=== PATIENT | female | born 1950 | race Caucasian/White ===

== ENCOUNTER 2025-08-20 15:37 | Inpatient (IN) | payer MEDICARE, OTHER ==
[~2025-08-20] VITALS: Ht 172.7 cm; Wt 96.3 kg
[~2025-08-20 15:37] MED LIST: ASCO10004 PO; ATOR10TA87 PO; CHOL200080 PO; CYAN-34 PO; GLIP5TAB23 PO; MAGN400C PO
[2025-08-20 16:04] LABS: MEAN PLATELET VOLUME 7.8 FL (7.4-10.4); RED CELL DISTRIBUTION WIDTH 17.2 % (11.5-14.5)
[2025-08-20] MEDS: normal saline 1000ML IV soln IVB ONE (16:28)
[2025-08-20 16:31] LABS: CREATININE 4.21 MG/DL (0.40-0.90); PRO BRAIN NATRIURETIC PEPTIDE 14925 PG/ML (0-125); TOTAL CARBON DIOXIDE 22.8 MMOL/L (24-32); eCRCL 12 ML/MIN; eGFR 10 ML/MIN
--- NOTE | 2025-08-20 16:31 | RADIOLOGY REPORT ---
CHEST RADIOGRAPH Indication: CP Technique: Single frontal view of the chest was obtained. Comparison: DI CHEST,SINGLE VIEW on DOS: 07/24/25 Findings: Mild pulmonary vascular congestion. No significant pleural effusion. No pneumothorax. Stable cardiomediastinal silhouette. IMPRESSION: Mild pulmonary vascular congestion.
[2025-08-20] MEDS: dexamethasone sod phosphate 10mg/ml inj IV STA (16:41)
[2025-08-20] MEDS: dextrose 50%-water 50ml dispensing syringe IV ONE (16:42)
--- NOTE | 2025-08-20 16:42 | Physician Documentation ---
History of Present Illness ~ General Chief Complaint: Hypotension Stated Complaint: LOW BP Time Seen by MD: 15:50 OK to notify your PCP?: Yes Mode of Arrival: EMS History of Present Illness Initial Comments 74-year-old female patient history of CKD, severe ,past medical history of diabetes mellitus, hypertension, hyperlipidemia, IBS, neuropathy , status post NSTEMI recently discharged from the [facility] was brought the emergency room by EMS from [facility] because of low blood pressure. Patient denies any pain including chest pain and also denies shortness a breath. No nausea vomiting diarrhea. No abdominal pain. Medication Reconciliation Allergies: Coded Allergies: No Known Allergies (Unverified , 07/24/25) Scheduled Acetaminophen (Tylenol), 650 MG PO Q6H PRN PAIN, (Reported) Ascorbic Acid (Vitamin C), 1 TAB PO DAILY, (Reported) Aspirin (Aspirin EC), 1 TAB PO DAILY, (Reported) Atorvastatin Calcium* (Lipitor*), 40 TAB PO HS, (Reported) Balsam Liv/Alta Oil (Venelex Ointment), 1 APPLIC TP DAILY, (Reported) Cholecalciferol (Vitamin D3) (Vitamin D3), 1 CAP PO DAILY, (Reported) Clopidogrel Bisulfate (Clopidogrel), 1 TAB PO DAILY, (Reported) Cyanocobalamin (Vitamin B-12) (Vitamin B-12), 1 CAP PO DAILY, (Reported) Empagliflozin (Jardiance), 1 TAB PO DAILY, (Reported) Glipizide (Glipizide), 1 TAB PO DAILY, (Reported) Insulin Lispro (Insulin Lispro), 1 APPLIC SQ ACHS, (Reported) Magnesium (Magnesium Oxide), 400 MG PO DAILY, (Reported) Magnesium Hydroxide (Milk of Magnesia), 30 ML PO DAILY, (Reported) Magnesium Oxide (Magnesium), 1 CAP PO DAILY, (Reported) Melatonin (Melatonin), 1 TAB PO HS, (Reported) Metoprolol Tartrate (Lopressor tablet), 12.5 MG PO BID, (Reported) Midodrine Hcl* (Proamatine*), 1 TAB PO Q8H, (Reported) Multivitamin (Multi Vitamin Daily), 1 TAB PO DAILY, (Reported) Sacubitril/Valsartan (Entresto 24 mg-26 mg Tablet), 0.5 TAB PO Q12H, (Reported) Scheduled PRN Acetaminophen (Tylenol), 650 MG PO Q6H PRN PAIN PRN for pain, (Reported) Acetaminophen/Guaifenesin (Mucinex Cold-Flu Hbp Liq Gel), 2 CAP PO Q12H PRN for cough & congestion, (Reported) Albuterol Sulfate Nebs* (Proventil Nebs*), 2.5 MG IH Q4H PRN for SOB or wheezing, (Reported) Bisacodyl (Dulcolax), 2 TAB PO DAILY PRN for constipation, (Reported) Bisacodyl (Bisacodyl), 1 SUPP RC DAILY PRN for constipation, (Reported) Hydrocodone Bit/Acetaminophen 5/325 MG ([place] 5/325 MG), 2 TAB PO Q4H PRN for moderate or severe pain, (Reported) Na Phos,M-B/Na Phos,Di-Ba (Fleet Enema Extra), 1 APPLIC RC DAILY PRN for constipation, (Reported) Ondansetron HCl (Ondansetron HCl), 1 TAB PO Q6H PRN PRN for nausea/vomiting, (Reported) Review of Systems ROS As stated above in the HPI, otherwise all systems are reviewed and negative. Physical Exam Physical Exam Vital Signs: Temperature: 99.1, Source: Oral, Heart Rate: 89, Respiratory Rate: 16, BP: 85/49, Pulse Oximetry: 97, Weight: 102.000 Oxygen Flow Rate: 2.0 Physical Exam Vital signs reviewed and blood pressure is low. Const: Patient does look pale but not in distress Head: Atraumatic Eyes: Normal Conjunctiva ENT: Normal External Ears, Nose and Mouth. Dry mucous membrane Neck: Full range of motion. No meningismus Resp: Clear to auscultation bilaterally. Normal work of breathing Cardio: Regular rate and rhythm, no murmurs. Skin well perfused Abd: Soft, non-tender, non-distended. Normal bowel sounds. No rebound or guarding Skin: No petechiae or rashes. Warm and dry Back: No midline or flank tenderness Ext: No cyanosis, or edema Neuro: Awake and alert Psych: Normal Mood and Affect Progress Results/Orders Results/Orders Orders - OHAIDE Kenyon MD Chest,Single View (08/20/25 16:18) Monitor (08/20/25 15:42) Saline Lock (08/20/25 15:42) Oxygen (08/20/25 15:42) Norepinephrine 8mg/ 250ml Ns (Norepineph (08/20/25 17:15) Chest,Single View (08/20/25 17:18) Culture Blood (08/20/25 17:28) Straight Cath For Urine Sample (08/20/25 17:31) Hospitalist Icu Consultation (08/20/25 ) Electrocardiogram (08/21/25 ) Completed Orders - AIDE ACEVEDO MD Chest,Single View (08/20/25 16:18) Cbc/Diff (08/20/25 15:42) BMP (08/20/25 15:42) PBNP (08/20/25 15:42) Hs Troponin I W Calculations (08/20/25 15:42) Normal Saline 1000ml (0.9% Sodium Chlori (08/20/25 15:50) Dexamethasone Inj (Decadron 10mg/Ml Inj) (08/20/25 15:50) Liver Panel (08/20/25 15:51) Dextrose 50%-Water (Dextrose 50%-Water S (08/20/25 16:30) Normal Saline 1000ml (0.9% Sodium Chlori (08/20/25 16:45) Lidocaine 1% W/Epi 1:200,000 (Xylocaine (08/20/25 16:55) Lidocaine 1% W/Epi 1:100,000 (Xylocaine (08/20/25 17:00) Chest,Single View (08/20/25 17:18) Procalcitonin (08/20/25 17:28) Lacticsepsis (08/20/25 17:28) Cefepime 1gm In D5w 50ml (Cefepime 1gm/D (08/20/25 17:35) Acetaminophen (08/20/25 15:51) Lipid Panel (08/20/25 15:51) MG (08/20/25 15:51) PHOS (08/20/25 15:51) TSH (08/20/25 15:51) Electrocardiogram (08/21/25 ) Vital Signs 08/20/25 08/20/25 08/20/25 08/20/25 15:49 15:49 15:49 16:33 Temp 99.1 Pulse 90 89 Resp 18 17 16 B/P (MAP) 78/46 85/49 (61) Pulse Ox 97 99 97 O2 Delivery Nasal Cannula* O2 Flow Rate 2 0 2.0 FiO2 N/A 08/20/25 08/20/25 08/20/25 08/20/25 16:46 16:50 17:05 17:20 Pulse 91 91 92 94 Resp 16 20 18 18 B/P (MAP) 70/47 (55) 84/49 (61) 80/51 (61) 88/51 (63) Pulse Ox 99 98 98 98 O2 Flow Rate 2.0 2.0 2.0 2.0 08/20/25 08/20/25 17:35 17:38 Pulse 98 Resp 18 B/P (MAP) 79/52 (61) 86/57 Pulse Ox 99 O2 Flow Rate 2.0 Laboratory Tests Test 08/20/25 15:51 08/20/25 16:27 08/20/25 16:48 White Blood Count 8.1 Red Blood Count 2.92 L Hemoglobin 9.2 L Hematocrit 26.4 L Mean Corpuscular Volume 90.5 Mean Corpuscular Hemoglobin 31.6 H Mean Corpuscular Hemoglobin Concent 35.0 Red Cell Distribution Width 17.2 H Platelet Count 250 Mean Platelet Volume 7.8 Neutrophils (%) (Auto) 78.3 H Lymphocytes (%) (Auto) 13.0 L Monocytes (%) (Auto) 6.0 Eosinophils (%) (Auto) 2.3 Basophils (%) (Auto) 0.4 Neutrophils # (Auto) 6.3 Lymphocytes # (Auto) 1.0 L Monocytes # (Auto) 0.5 Eosinophils # (Auto) 0.2 Basophils # (Auto) 0.0 CBC Comment Prothrombin Time 14.0 H INR International Normalized Ratio 1.4 Activated Partial Thromboplast Time 26 Coagulation Comments Sodium Level 139 Potassium Level 4.9 Chloride Level 103 Carbon Dioxide Level 22.8 L Anion Gap 13 Blood Urea Nitrogen 70 H Creatinine 4.21 H Estimated GFR/1.73 m2 10 BUN/Creatinine Ratio 16.6 Glucose Level 52 L Calcium Level 7.4 L Phosphorus Level 4.4 Magnesium Level 3.1 H Total Bilirubin 0.8 Direct Bilirubin 0.4 H Aspartate Amino Transf (AST/SGOT) 5118 H Alanine Aminotransferase (ALT/SGPT) > 7000 H Alkaline Phosphatase 153 H Troponin I High Sensitivity 4906 *H Pro-B-Type Natriuretic Peptide 51146 H Total Protein 6.2 L Albumin 2.9 L Globulin 3.3 Albumin/Globulin Ratio 0.9 L Triglycerides Level 72 Cholesterol Level 95 LDL Cholesterol 31 L HDL Cholesterol 50 Cholesterol/HDL Ratio 1.9 Procalcitonin 2.36 H Thyroid Stimulating Hormone (TSH) 1.96 Chemistry Comments Acetaminophen Level < 2.0 L Glucometer 55 L 145 H Medical Decision Making Additional information obtaine: old records, other Findings Patient's came in with hypotension. After 1 L of normal saline her blood pressure is still low. Because of CHF and CKD we do not want to give more of fluid. I started her on Levophed to titrate the mean arterial pressure to 65 and above. Right-sided IJ was inserted ultrasound-guided under strict sterile fashions. Chest x-ray shows satisfactory position of the tip of the central line. No pneumo. The patient needs to be admitted for hypotension. We have done the blood culture and lactic acid. chest X ray was unremarkable and UA is pending. Emperic antibiotics started in ER. I think the patient needs to be in the ICU for now. Have spoken to Dr. James at 17:39 hours, alkylation operator and he will see the patient in ER room one. CRITICAL CARE TIME: [50 ] minutes Treatments/Evaluations: Close monitoring and treatment of unstable vital signs, cardiorespiratory, and neurologic status, while maintaining tight balance of f luid, respiratory, and cardiac interventions. This time includes discussing the case with the patient and the patients family. This time does not include all procedures stated elsewhere in this record. This time also includes reviewing old records, labs and radiological studies. This time includes examining and re- examining the patient. Additionally, this time also includes arranging care with admitting and consulting physicians. Differential Diagnosis septic shock cardiogenic shock CHF Pneumonia Urosepsis Acute myocardial infarction Acute Kidney Injury Departure Disposition: ADMITTED INPATIENT Admission Level of Care: Critcal Care Impression: Primary Impression: Acute hypotension Additional Impressions: Aortic stenosis Acute systolic (congestive) heart failure Elevated troponin NSTEMI (non-ST elevated myocardial infarction) Condition: Guarded Referrals: NO PRIMARY CARE PROVIDER (PCP) Signature Scribe Signature: x Attestation: The note accurately reflects work and decisions made by me.Aide Banda MD 08/24/25 09:05 AIDE ACEVEDO MD Aug 20, 2025 16:42
[2025-08-20] MEDS: normal saline 1000ml 1,000 ML IV ONE (16:43)
[2025-08-20] MEDS ORDERED: LIDOcaine 1% w/epiNEPHrine 1:200,000 30ml vial SQ ONE (16:55)
[2025-08-20] MEDS: LIDOcaine 1% W/epiNEPHrine 1:100,000 20ml vial SQ ONE (17:04)
[2025-08-20] MEDS: NORepinephrine 8mg/ 250ml NS 250 ML IV SCH (17:38)
--- NOTE | 2025-08-20 17:47 | RADIOLOGY REPORT ---
EXAM: DI CHEST,SINGLE VIEW CLINICAL HISTORY: CENTRAL LINE CONFIRMATION TECHNIQUE: Single AP view of the chest WID: COMPARISON: DI CHEST,SINGLE VIEW on DOS: 08/20/25 FINDINGS: Lines and tubes: Right IJ central venous catheter with the tip projecting over the mid SVC. Soft tissue anchors project over the right humeral head. Chest: Cardiomegaly and pulmonary vascular congestion. No pleural effusion, pneumothorax, or consolidation. The osseous structures are grossly intact. IMPRESSION: 1. Cardiomegaly and pulmonary vascular congestion. 2. Right IJ central venous catheter with the tip projecting over the mid SVC. No pneumothorax.
[2025-08-20] MEDS ORDERED: ondansetron/PF 4mg/2ml inj IV PRN (18:20)
[2025-08-20] MEDS ORDERED: heparin 25,000 UNIT/250ml bag 250 ML IV PRN (18:25)
--- NOTE | 2025-08-20 18:34 | HISTORY AND PHYSICAL-Residence ---
History & Physical Providers to CC Resident Creating Document: BISMARK SUTHERLAND RES ~ History of Present Illness Reason for Admit\Complaint: Shock History of Present Illness The 74-year-old female with a past medical history of CAD-s/p proximal LAD stenting on 07/28/2025, mellitus, hypertension, hyperlipidemia was transferred from [facility] for hypotension. Mentioned that she has been feeling dizzy since morning. Did not have any fall. Was nauseous yesterday and threw up food. Mentioned that the shortness of breath is there for few months and is now getting worse. Also complains of orthopnea and PND. On Oxygen supplementation at the rehab but denied using any oxygen at home before cardiac stenting. Unsure how much oxygen she was requiring at the rehab. Denies any chest pain, nausea and vomiting now, abdominal pain, constipation or diarrhea, dysuria, blurry vision. Walks using a cane. Discharged on aspirin, Plavix, beta- marisol, Entresto, Jardiance and midodrine but no Lasix. She received 20 mg IV Lasix during her hospital stay. Allergies: Coded Allergies: No Known Allergies (Unverified , 07/24/25) Home Medications Home Medications Active Reported Vitamin B-12 (Cyanocobalamin (Vitamin B-12)) 1,000 Mcg Capsule 1 Cap PO DAILY 30 Days Vitamin D3 (Cholecalciferol (Vitamin D3)) 50 Mcg (2000 Unit) Capsule 1 Cap PO DAILY 30 Days Vitamin C (Ascorbic Acid) 1,000 Mg Tablet 1 Tab PO DAILY 15 Days DIRECTED Magnesium (Magnesium Oxide) 400 Mg Magnesium Capsule 1 Cap PO DAILY 30 Days Lipitor* (Atorvastatin Calcium) 10 Mg Tablet 1 Tab PO DAILY 30 Days Glipizide 5 Mg Tablet 1 Tab PO DAILY 30 Days Past Medical History Past Medical History Diabetes mellitus type 2, hypertension, hyperlipidemia, IBS, neuropathy Past Surgical History Surgical History Comment s/p amputation of left 1st and 2nd toe and right 1st toe many years back, proximal LAD stenting on 07/28/2025, tonsillectomy Past Social History Social History Comment Quit smoking tobacco about 25 years back and smoked about five cigarettes per day for about 10 years. Occasionally drinks alcohol-one beer per month. Denied abusing any other recreational drugs ROS ROS Constitutional: Dizziness present. No fever, chills, weakness, weight gain or loss Eyes: No pain, erythema, discharge, blurring of vision ENT: No sore throat, epistaxis, tinnitus Cardiovascular: Orthopnea and PND present. No chest pain, chest pressure, chest discomfort, palpitations, syncope Respiratory: Shortness of breaths present. No cough, hemoptysis Gastrointestinal: Normal appetite. No nausea, vomiting, diarrhea, constipation, hematemesis, abdominal pain, bloating, melena or fresh blood Genitourinary: No frequency, urgency, nocturia, hematuria or dysuria Musculoskeletal: No arthralgias or myalgias Integumentary: No change in skin, hair, nails. No swelling, bruising, abrasions Neurologic: No headache, neck pain, numbness or tingling of the extremities, weakness Psychiatric: No delusions, depression, loss of interest in normal activity or change in sleep pattern, hallucinations, suicidal ideations Endocrine: No fatigue, weakness, polydipsia, polyuria, change in appetite, heat or cold intolerance, sweating, dry skin Hematological: No bleeding, petechiae, bruising Allergies: No asthma or urticaria Exam Vitals: Vital Signs Date Time Temp Pulse Resp B/P (MAP) Pulse Ox O2 Delivery O2 Flow Rate FiO2 08/20/25 17:57 123/57 08/20/25 16:50 91 20 98 2.0 08/20/25 15:49 99.1 08/20/25 15:49 Nasal Cannula* N/A General: Drowsy. Oriented x4. HEENT: Normocephalic and atraumatic. Pupils equal round reactive to light and accommodation. Extraocular movements intact. Oral mucosa dry Neck: Trachea is in midline. No masses or JVD Chest: Bilateral mildly decreased breath sounds. Bilateral basal crackles present. No rhonchi or wheezing Cardiovascular: Regular rate and rhythm. S1-S2 normal. Grade 3/6 systolic ejection murmur in the aortic area, grade 3/6 holosystolic murmur in the tricuspid and mitral area Abdomen: Soft, nontender nondistended. Bowel sounds present Extremities: Bilateral 1+ pedal edema present. No cyanosis or clubbing. S/p left 1st 12nd toe amputation and right 1st toe amputation-many years back Central Nervous System: Bilateral upper extremity motor power-4/5. Bilateral lower extremity motor power 3/5. No significant sensory abnormalities. Skin: Warm and dry Diagnostic Data Last Recorded Lab Results: 08/20/25 1551 08/20/25 1551 Advance Care Planning Advanced Care plannin - 30 Minutes Additional Plan Cardiovascular Cardiogenic shock vs septic shock NSTEMI Chest x-ray showed cardiomegaly and pulmonary vascular congestion Significantly elevated troponin 16991, does not like JAMES on CKD stage 4 Troponin later 4906. Repeat troponins ordered EKG showed sinus rhythm, borderline QRS, Q-waves in leads V1, V2 and V3, no significant ST elevation. Has a artifacts. No new changes compared to the EKG on 07/24/25 Started heparin drip taking heparin bolus Repeat EKG ordered Also received 2 L normal saline boluses in the ER and then was started on Levophed drip-0.1 mcg/kg/minute Has been 81 mg p.o. daily and Plavix 75 mg p.o. daily Hold beta marisol for hypotension Procalcitonin elevated-2.36. Recheck procalcitonin tomorrow WBC normal but neutrophilia present ER Physician ordered cefepime 1 g IV once Started vancomycin pharmacy to dose and cefepime 1 g IV daily Blood cultures ordered Urine analysis ordered Consult Cardiology in a.m. On 07/24/2025 showed LVEF 40%, RA moderately dilated, severe aortic stenosis, severe mitral regurgitation, trace tricuspid regurgitation Repeat echocardiogram ordered Pending urine tox Respiratory Chronic respiratory failure Now, requiring 2 L O2 via nasal cannula Has been requiring about 2-3 L O2 during her previous hospital stay Chest x-ray shows cardiomegaly and pulmonary vascular congestion Holding diuresis for now ABG ordered Renal/electrolytes/fluids JAMES on CKD stage 4 Normal anion gap metabolic acidosis Significant decline in kidney function Today, creatinine 4.21 and EGFR 10, BUN 70 On 07/29/2025, creatinine 1.4, EGFR 37, BUN 63 Hold home medication medication Entresto, Jardiance Urine Lytes ordered Renal ultrasound done on 09/25/2024 showed reduced kidney size-right kidney 8.8 cm and left kidney 8.3 cm Strict I&Os Consult nephrology in a.m. Received 2 L normal saline boluses in the ER Pending phos and magnesium level Corrected calcium with albumin level within normal limits GI Shock liver AST 5118, ALT more than 7000, ALP 153. Normal total bilirubin No Baseline liver function tests available but trending up compared to yesterday Acetaminophen level and hepatic panel ordered Coagulation profile ordered Received 2 L normal saline boluses in the ER On Levophed drip Not giving much IV fluids due to underlying acute CHF and almost end-stage renal disease Hold Lipitor for acute liver injury Neurologic No acute neurological deficits No seizures or delirium Endocrine Prediabetes TSH level pending A1c on 07/24 was 5.8 Continue heart healthy diet Hematology HGB 9.2. WBC normal but neutrophilia present Normocytic normochromic anemia Line: Right IJ central line DVT Prophylaxis: Heparin drip Diet: Heart healthy diet Prophylaxis: Protonix 40 mg p.o. daily Bismark Sutherland MD Internal Medicine Resident, PGY 3 Date of Service: Aug 20, 2025 Billing Provider: COSME THOMPSON MD,BISMARK RES Aug 20, 2025 18:33
[2025-08-20] MEDS ORDERED: vancomycin/NS 1 GM ADD-VANTAGE 250 ML X 1 DOSE IV ONE (18:40)
[2025-08-20] MEDS ORDERED: vancomycin/NS 1 GM ADD-VANTAGE 250 ML X 1 DOSE IV PRN (18:55)
[2025-08-20 19:04] LABS: APTT 26 SECONDS (22-32); INR 1.4 INR
[2025-08-20] MEDS: cefepime 1GM in D5W 50mL 50 ML IV ONE (19:17)
[2025-08-20 19:20] LABS: CHOL/HDL RATIO 1.9 (0.00-4.99); LDL CHOLESTEROL 31 MG/DL (50-100); PHOSPHORUS 4.4 MG/DL (2.3-4.5)
[2025-08-20] MEDS: MESSAGE TO NURSING IV ONE ×2 (19:33→22:20)
[2025-08-20] MEDS: heparin 10,000 units/1 ML INJ IV ONE (19:36)
[2025-08-20] MEDS: heparin 25,000 UNIT/250ml bag 250 ML IV PRN (19:37)
[2025-08-20 20:00] VITALS: BP 110/55; PULSE 122; RESP 19; O2SAT 94
[2025-08-20 20:20] LABS: ABG BASE EXCESS -9.8 mmol/L (-2.0-3.0); ABG HCO3 14.2 mmol/L (21.0-28.0); ABG OXYGEN SATURATION 94.2 % (94.0-98.0); ABG PCO2 (T) 24.9 mmHg (32.0-45.0); ABG PH (T) 7.371 (7.350-7.450); ABG PO2 (T) 75.7 mmHg (83.0-108.0); ALLEN'S TEST Modified; FCOHb 0.5 % (0.5-1.5); FHHb 5.8 % (0.0-5.0); FIO2 28.0 mmHg/%; FMetHb 0.3 % (0.0-1.5); FO2Hb 93.4 % (94.0-98.0); MODE NASAL CANNULA; PATIENT TEMPERATURE 36.2; TOTAL HEMOGLOBIN 10.8 G/dl (12.0-16.0)
[2025-08-20] MEDS: VANCOMYCIN/H2O 1.75g/350mL PB 350 ML IV ONE (20:52)
[2025-08-20 20:56] LABS: LEUKOCYTE ESTERASE ,URINE NEGATIVE (Neg); NITRITES, URINE NEGATIVE (Neg); OCCULT BLOOD,URINE MODERATE (Neg)
[2025-08-20 21:00] VITALS: BP 97/61; PULSE 117; RESP 19; O2SAT 98
[2025-08-20 21:04] LABS: CREATININE,URINE RANDOM 124.0 MG/DL; UA UREA RANDOM 543.0 MG/DL; URINE AMPHETAMINE SCREEN NEGATIVE (Neg); URINE BARBITUATE SCREEN NEGATIVE (Neg); URINE BENZODIAZEPINES SCREEN NEGATIVE (Neg); URINE CANNABINOID SCREEN NEGATIVE (Neg); URINE COCAINE SCREEN NEGATIVE (Neg); URINE METHADONE SCREEN NEGATIVE (Neg); URINE OPIATE SCREEN POSITIVE (Neg); URINE PHENCYCLIDINE SCREEN NEGATIVE (Neg)
[2025-08-20 21:06] LABS: OSMOLALITY UA 418 MOSM/K (50-1400)
[2025-08-20 21:19] LABS: UA COLLECTION TYPE NON-SPECIFIED
[2025-08-20 21:21] LABS: SQUAMOUS EPITHELIAL CELL,UR FEW /LPF (FEW)
[2025-08-20 21:22] LABS: AMORPHOUS URATES 2+
[2025-08-20 22:00] VITALS: BP 118/70; PULSE 113; RESP 17; O2SAT 98
[2025-08-20 22:02] LABS: APTT 31 SECONDS (22-32); INR 1.4 INR
[2025-08-20 22:10] LABS: UA EOSINOPHILS NO EOS /HPF
[2025-08-20] MEDS ORDERED: MESSAGE TO NURSING IV ONE (22:15)
[2025-08-20] MEDS: heparin 10,000 units/1 ML INJ IV PRN (22:19)
[2025-08-20 23:00] VITALS: BP 117/70; PULSE 109; RESP 17; O2SAT 99
[2025-08-20 23:44] VITALS: RESP 17; O2SAT 99
[2025-08-21] VITALS (24 sets, daily range): BP systolic 73–118; BP diastolic 40–68; PULSE 89–108; RESP 12–20; O2SAT 94–100
[2025-08-21] MEDS ORDERED: ALB0.5UD IH ×2 (01:52→13:59)
[2025-08-21] MEDS ORDERED: HYDR-3973 PO (02:36)
[2025-08-21] MEDS ORDERED: ACET1CAP12 PO ×2 (02:36→13:59)
[2025-08-21] MEDS ORDERED: ASPI81TA52 PO ×2 (02:36→13:59)
[2025-08-21] MEDS ORDERED: ACET-1008 PO (02:36)
[2025-08-21] MEDS ORDERED: MAGN400O6 PO ×2 (02:36→13:59)
[2025-08-21] MEDS ORDERED: BISA-155 PO ×2 (02:36→13:59)
[2025-08-21] MEDS ORDERED: MULT-381 PO (02:36)
[2025-08-21] MEDS ORDERED: NA P230E RC ×2 (02:36→13:59)
[2025-08-21] MEDS ORDERED: CLOP75TA34 PO ×2 (02:36→13:59)
[2025-08-21] MEDS ORDERED: EMPA10TA PO ×2 (02:36→13:59)
[2025-08-21] MEDS ORDERED: SACU1TAB PO ×2 (02:36→13:59)
[2025-08-21] MEDS ORDERED: ATOR40TA PO (02:36)
[2025-08-21] MEDS ORDERED: ONDA-103 PO ×2 (02:36→13:59)
[2025-08-21] MEDS ORDERED: MIDO2.5T PO ×2 (02:36→13:59)
[2025-08-21] MEDS ORDERED: METO25TA6 PO (02:36)
[2025-08-21] MEDS ORDERED: BISA10SU11 RC ×2 (02:37→13:59)
[2025-08-21] MEDS: VANCOMYCIN LEVEL IV SCH (03:00)
[2025-08-21 04:36] LABS: INR 1.4 INR
[2025-08-21 04:38] LABS: MEAN PLATELET VOLUME 7.3 FL (7.4-10.4); RED CELL DISTRIBUTION WIDTH 16.9 % (11.5-14.5)
[2025-08-21 04:58] LABS: EOSINOPHILS % (MANUAL) 2.0 % (0-6); LYMPHOCYTES % (MANUAL) 10.0 % (21-51); MONOCYTES % (MANUAL) 6.0 % (2-12); NEUTROPHILS % (MANUAL) 82.0 % (42-75); PLATELET ESTIMATE NORMAL
[2025-08-21] MEDS: MESSAGE TO NURSING IV ONE ×3 (05:15→20:52)
[2025-08-21 05:33] LABS: CREATININE 3.34 MG/DL (0.40-0.90); PHOSPHORUS 4.0 MG/DL (2.3-4.5); eCRCL 15 ML/MIN; eGFR 14 ML/MIN
[2025-08-21 05:36] LABS: TOTAL CARBON DIOXIDE 14.3 MMOL/L (24-32)
--- NOTE | 2025-08-21 06:22 | ELECTROCARDIOGRAPH REPORT ---
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 Thomas Ochoa Measurements Intervals [place] Rate: 90 P: 46 [place]: 156 QRS: 3 QRSD: 151 T: 76 QT: 404 QTc: 495 Interpretive Statements Sinus rhythm IVCD, consider atypical LBBB Electronically Signed On 08-21-2025 6:44:[address] Thomas Ochoa Please click the below link to view image of tracing.
--- NOTE | 2025-08-21 07:05 | PROGRESS NOTE ---
Progress Note Dictate Providers to CC ~ Progress Note: Remains on pressors Central Line/PICC still needed: Yes Edwards Indications Met/Not Met: F/C Indications Not Met Antibiotic Ordered?: N/A Subjective Subjective Comfortable Objective Vitals Vital Signs Date Time Temp Pulse Resp B/P (MAP) Pulse Ox O2 Delivery O2 Flow Rate FiO2 08/21/25 05:59 99.0 106 18 118/58 (78) 99 Nasal Cannula 2.0 08/20/25 23:44 N/A Lab Results: 08/21/25 0409 08/21/25 0409 Objective Heart: S1-2 reg Lungs: Decrease BS at bases Abdomen: Soft, non-tender, BS (+) Ext: No edema Neuro: awake Coagulation Studies Laboratory Tests Test 08/20/25 21:25 08/21/25 04:09 Activated Partial Thromboplast Time 31 SECONDS (22-32) Prothrombin Time 14.0 SECONDS (9.0-12.0) H INR International Normalized Ratio 1.4 INR APTT (Heparin Protocol) 37 SECONDS (45-60) L Coagulation Comments Problem\Assessment\Plan Additional Plan 1-NSTEMI -Heparin drip drip per protocol 2-Cardiogenic Shock -Pressors as needed -F/U LFT 3-JAMES -Avoid nephrotoxic drugs -F/U BMP 4- -Consult Cardiology for TAVR? 5-Metabolic acidosis -Add HCO3 drip 6-Aymptomatic Bacteuria -D/C loni James CC time 35min Sepsis Screening Reassessment Date: Aug 21, 2025 COSME JAMES MD Aug 21, 2025 07:05
[2025-08-21] MEDS: sodium bicarbonate 1meq/ml inj 150 ML in dextrose 5%-water 1,000 ML IV SCH (07:14)
[2025-08-21] MEDS: aspirin 81mg, enteric-coated 1 TAB TABLET.DR PO SCH (08:36)
[2025-08-21] MEDS: pantoprazole 40mg Tablet.DR PO SCH (08:36)
[2025-08-21] MEDS: insulin glargine (Lantus) pen - multi-dose SQ SCH (08:44)
--- NOTE | 2025-08-21 10:37 | ELECTROCARDIOGRAPH REPORT ---
[facility] Test Date: 2025-08-21 Test Time: 10:36:37 Pat Name: WESLY CARY Department: [facility] 2S Patient ID: [id number] Room: [facility] 2011 A Gender: F Manager Heart: CALEB : 1950 Requested By: AIDE ACEVEDO Order Number: [id number] Reading MD: Dr. Ramon Hancock Measurements Intervals [place] Rate: 91 P: 35 [place]: 159 QRS: -47 QRSD: 140 T: 88 QT: 386 QTc: 475 Interpretive Statements Sinus rhythm Atrial premature complex Low QRS voltage limb leads Left bundle branch block Electronically Signed On 08-22-2025 14:33:[address] Ramon Hancock Please click the below link to view image of tracing.
[2025-08-21] MEDS: INSULIN LISPRO 100 UNIT/ML INSULN.PEN MULTI-DOSE SQ SCH (13:44)
[2025-08-21] MEDS ORDERED: MAGN200T5 PO (13:59)
[2025-08-21] MEDS ORDERED: BALS60OI TP (13:59)
[2025-08-21] MEDS ORDERED: MELA5TAB50 PO (13:59)
[2025-08-21] MEDS ORDERED: INSU100V49 SQ (13:59)
[2025-08-21] MEDS ORDERED: HYDR-3965 PO (13:59)
[2025-08-21] MEDS ORDERED: MULT-1085 PO (13:59)
[2025-08-21] MEDS ORDERED: LOP12.5T PO (13:59)
[2025-08-21] MEDS: albumin (human) 25% 100 ML IV solution IV ONE (15:40)
--- NOTE | 2025-08-21 18:11 | CARDIOLOGY REPORT ---
APPROVED REPORT EXAM: Limited 2D, Doppler, and color-flow Echocardiogram. Patient Location: ED1 Blood Pressure: 127/67 mmHg Heart Rate: 115 bpm Rhythm: Sinus Tachycardia Indications CHF Diabetes Troponin 4906 Increased Pro BNP 09423 Instructional Technology Coach is Mattie Hamilton MD Previous echo 07/24/25 [facility] 40% EF ; sev w/ isabel of 0.78 ; grad 81/44 ; pk v 4.49 ; m MS w/ grad 12/6 pk v of 1.72 2D Dimensions IVC 25.18 mm Aortic Valve AoV Peak Damaso. 462.5 cm/s AO Peak GR. 85.6 mmHg LEFT VENTRICLE LV appears normal in size with mild concentric hypertrophy. Overall systolic function appears mildly reduced. Pt on 0.8 mcg/kg/min of LEVO. LVEF is 45-50%. RIGHT VENTRICLE RV appears normal in size and contractility. AORTIC VALVE Known Severe Aortic stenosis with a peak velocity of 4.62 m/s. MITRAL VALVE MV is calcified with known mild stenosis. Valve not fully evaluated due to limited focused exams. Moderate to severe mitral regurgitation TRICUSPID VALVE The tricuspid valve is normal in structure. Trace tricuspid regurgitation. GREAT VESSELS IVC is dilated and collapses less than 50% with inspiration. PERICARDIUM Small anterior pericardial effusion with no evidence of hemodynamic compromise. Pleural effusion. Other Information Study Quality: Adequate Conclusion LV appears normal in size with mild concentric hypertrophy. Overall systolic function appears mildly reduced. Pt on 0.8 mcg/kg/min of LEVO. LVEF is 45-50%. RV appears normal in size and contractility. Known Severe Aortic stenosis with a peak velocity of 4.62 m/s. MV is calcified with known mild stenosis. Valve not fully evaluated due to limited focused exams. Moderate to severe mitral regurgitation The tricuspid valve is normal in structure. Trace tricuspid regurgitation. Small anterior pericardial effusion with no evidence of hemodynamic compromise. Pleural effusion.
[2025-08-21] MEDS ORDERED: MESSAGE TO NURSING IV ONE (20:15)
[2025-08-22] VITALS (25 sets, daily range): BP systolic 83–110; BP diastolic 47–64; PULSE 71–98; RESP 9–21; O2SAT 93–100
[2025-08-22] MEDS: MESSAGE TO NURSING IV ONE (01:13)
[2025-08-22] MEDS: morphine 4 MG/ML inj SYRINge IV PRN (01:58)
[2025-08-22 02:27] LABS: MEAN PLATELET VOLUME 7.3 FL (7.4-10.4); RED CELL DISTRIBUTION WIDTH 16.5 % (11.5-14.5)
[2025-08-22 02:38] LABS: INR 1.4 INR
[2025-08-22 02:47] LABS: CREATININE 2.40 MG/DL (0.40-0.90); PHOSPHORUS 2.6 MG/DL (2.3-4.5); TOTAL CARBON DIOXIDE 24.4 MMOL/L (24-32); eCRCL 21 ML/MIN; eGFR 20 ML/MIN
--- NOTE | 2025-08-22 06:25 | PROGRESS NOTE ---
Progress Note Dictate Providers to CC ~ Progress Note: Remains on pressors Central Line/PICC still needed: Yes Edwards Indications Met/Not Met: F/C Indications Not Met Antibiotic Ordered?: No Subjective Subjective Comfortable Objective Vitals Vital Signs Date Time Temp Pulse Resp B/P (MAP) Pulse Ox O2 Delivery O2 Flow Rate FiO2 08/22/25 06:00 98.2 80 10 93/55 (68) 100 Nasal Cannula 2.0 08/20/25 23:44 N/A Lab Results: 08/22/25 0205 08/22/25 0205 Objective Heart: S1-2 reg Lungs: Decrease BS at bases Abdomen: Soft, non-tender, BS (+) Ext: No edema Neuro: awake Coagulation Studies Laboratory Tests Test 08/20/25 21:25 08/21/25 23:33 08/22/25 02:05 Activated Partial Thromboplast Time 31 SECONDS (22-32) APTT (Heparin Protocol) 52 SECONDS (45-60) Prothrombin Time 13.6 SECONDS (9.0-12.0) H INR International Normalized Ratio 1.4 INR Coagulation Comments Problem\Assessment\Plan Additional Plan 1-NSTEMI -D/C Heparin drip 2-Cardiogenic Shock -Pressors as needed. Titrate for MAP>60mmHg 3-JAMES -Avoid nephrotoxic drugs -F/U BMP 4- -Consult Cardiology for TAVR? 5-Metabolic acidosis -Continue HCO3 drip 6-Aymptomatic Bacteuria 7-BC (+) *1 -Most likely contaminant Samson James CC time 35min Sepsis Screening Reassessment Date: Aug 22, 2025 COSME JAMES MD Aug 22, 2025 06:25
[2025-08-22] MEDS: heparin, porcine 5000 units/ml vial SQ SCH (08:04)
[2025-08-22] MEDS ORDERED: cefepime 1GM in D5W 50mL 50 ML IV SCH (17:30)
[2025-08-23] VITALS (24 sets, daily range): BP systolic 79–108; BP diastolic 40–64; PULSE 71–108; RESP 10–25; O2SAT 92–100
[2025-08-23 02:26] LABS: APTT 24 SECONDS (22-32); INR 1.2 INR
[2025-08-23 02:29] LABS: MEAN PLATELET VOLUME 7.5 FL (7.4-10.4); RED CELL DISTRIBUTION WIDTH 17.1 % (11.5-14.5)
[2025-08-23 02:37] LABS: CREATININE 1.65 MG/DL (0.40-0.90); PHOSPHORUS 2.5 MG/DL (2.3-4.5); TOTAL CARBON DIOXIDE 30.9 MMOL/L (24-32); eCRCL 31 ML/MIN; eGFR 30 ML/MIN
[2025-08-23 06:11] LABS: HBSAG SCREEN Negative (Negative); HEP A AB, IGM Negative (Negative); HEP B CORE AB, TOT Negative (Negative); HEP B SURF AB QUANTITATIVE 40.0 mIU/mL (Immunity>10); HEPATITIS C VIRUS ANTIBODY Non Reactive (Non Reactive)
--- NOTE | 2025-08-23 07:04 | PROGRESS NOTE ---
Progress Note Dictate Providers to CC ~ Progress Note: On/Off pressors Central Line/PICC still needed: Yes Edwards Indications Met/Not Met: F/C Indications Not Met Antibiotic Ordered?: No Subjective Subjective Comfortable Objective Vitals Vital Signs Date Time Temp Pulse Resp B/P (MAP) Pulse Ox O2 Delivery O2 Flow Rate FiO2 08/23/25 05:53 91/57 08/23/25 05:52 98.1 77 10 100 Nasal Cannula 2.0 08/20/25 23:44 N/A Lab Results: 08/23/25 0200 08/23/25 0200 Objective Heart: S1-2 reg Lungs: Decrease BS at bases Abdomen: Soft, non-tender, BS (+) Ext: No edema Neuro: awake Coagulation Studies Laboratory Tests Test 08/22/25 06:36 08/23/25 02:00 APTT (Heparin Protocol) 112 SECONDS (45-60) *H Prothrombin Time 12.5 SECONDS (9.0-12.0) H INR International Normalized Ratio 1.2 INR Activated Partial Thromboplast Time 24 SECONDS (22-32) Coagulation Comments Problem\Assessment\Plan Additional Plan 1-NSTEMI 2-Cardiogenic Shock -Pressors as needed. Titrate for MAP>60mmHg 3-JAMES -Avoid nephrotoxic drugs -F/U BMP 4- -Consult Cardiology for TAVR? 5-Metabolic acidosis -Continue HCO3 drip 6-Romptolorelei James CC time 35min COSME JAMES MD Aug 23, 2025 07:03
[2025-08-23] MEDS: magnesium hydroxide 30ml (MOM) UD suspension PO PRN (15:41)
[2025-08-24] VITALS (24 sets, daily range): BP systolic 84–117; BP diastolic 39–77; PULSE 69–102; RESP 9–22; O2SAT 95–100
[2025-08-24 03:19] LABS: MEAN PLATELET VOLUME 7.2 FL (7.4-10.4); RED CELL DISTRIBUTION WIDTH 17.0 % (11.5-14.5)
[2025-08-24 03:41] LABS: CREATININE 1.25 MG/DL (0.40-0.90); PHOSPHORUS 2.5 MG/DL (2.3-4.5); TOTAL CARBON DIOXIDE 35.1 MMOL/L (24-32); eCRCL 40 ML/MIN; eGFR 42 ML/MIN
--- NOTE | 2025-08-24 06:59 | PROGRESS NOTE ---
Progress Note Dictate Providers to CC ~ Progress Note: On/Off pressors Central Line/PICC still needed: Yes Edwards Indications Met/Not Met: F/C Indications Not Met Antibiotic Ordered?: No Subjective Subjective Comfortable Objective Vitals Vital Signs Date Time Temp Pulse Resp B/P (MAP) Pulse Ox O2 Delivery O2 Flow Rate FiO2 08/24/25 06:00 97.9 73 9 99/44 (62) 99 Nasal Cannula 2.0 08/20/25 23:44 N/A Lab Results: 08/24/25 0305 08/24/25 0305 Objective Heart: S1-2 reg Lungs: Decrease BS at bases Abdomen: Soft, non-tender, BS (+) Ext: No edema Neuro: awake Coagulation Studies Laboratory Tests Test 08/22/25 06:36 08/23/25 02:00 APTT (Heparin Protocol) 112 SECONDS (45-60) *H Prothrombin Time 12.5 SECONDS (9.0-12.0) H INR International Normalized Ratio 1.2 INR Activated Partial Thromboplast Time 24 SECONDS (22-32) Coagulation Comments Problem\Assessment\Plan Additional Plan 1-NSTEMI 2-Cardiogenic Shock -Pressors as needed. Titrate for MAP>60mmHg 3-JAMES -Avoid nephrotoxic drugs -F/U BMP 4- -Consult Cardiology for TAVR? Samson James Sepsis Screening Reassessment Date: Aug 24, 2025 COSME JAMES MD Aug 24, 2025 06:58
[2025-08-24] MEDS: hydrocortisone sod succ/PF 100mg/2ml inj. IV SCH (07:26)
[2025-08-24] MEDS: HYDROcodone/acetaminophen 10/325mg tab PO ONE (22:21)
[2025-08-25] VITALS (29 sets, daily range): BP systolic 79–120; BP diastolic 44–75; PULSE 80–166; RESP 11–26; TEMP 97–98.2; O2SAT 93–100
[2025-08-25] MEDS: HYDROcodone/acetaminophen 5mg/325mg tablet PO PRN (01:04)
[2025-08-25 02:21] LABS: MEAN PLATELET VOLUME 7.2 FL (7.4-10.4); RED CELL DISTRIBUTION WIDTH 17.4 % (11.5-14.5)
[2025-08-25 02:42] LABS: APTT 24 SECONDS (22-32); INR 1.2 INR
[2025-08-25 02:46] LABS: CREATININE 1.24 MG/DL (0.40-0.90); PHOSPHORUS 3.2 MG/DL (2.3-4.5); TOTAL CARBON DIOXIDE 32.0 MMOL/L (24-32); eCRCL 41 ML/MIN; eGFR 42 ML/MIN
[2025-08-25 03:15] LABS: EOSINOPHILS % (MANUAL) 1.0 % (0-6); LYMPHOCYTES % (MANUAL) 14.0 % (21-51); METAMYLEOCYTES% (MANUAL) 1.0 % (0-0); MONOCYTES % (MANUAL) 6.0 % (2-12); NEUTROPHILS % (MANUAL) 78.0 % (42-75)
[2025-08-25 03:16] LABS: NUCLEATED RED BLOOD CELLS 1 /100WBC (0-0); PLATELET ESTIMATE NORMAL
[2025-08-25] MEDS: amiodarone 150mg/dext, iso-os 100 ML IV ONE (09:27)
[2025-08-25] MEDS: amiodarone/D5 360MG/200ML BAG 200 ML IV SCH (09:31)
[2025-08-25] MEDS: Ensure Enlive - 237ML PO SCH (13:00)
--- NOTE | 2025-08-25 13:41 | CONSULTATION REPORT ---
History of Present Illness Providers to CC CC: JUAN J HAMILTON MD ~ Reason for Admit\Admit Dx: Cardiology consultation History of Present Illness Patient presented secondary to dizziness, lightheadedness. Found to have hypotension. Initially admitted to the ICU on Levophed drip. Did have episode of atrial fibrillation with rapid ventricular response treated with amiodarone drip. Now back in sinus rhythm. Also had an acute kidney injury with initial creatinine 4.21 now down to. She has been off Levophed drip since last night. Maintaining map around 60. Complains of continued dyspnea on exertion when working with physical therapy back at rehab. She is on supplemental oxygen. Was discharged home with guideline directed medical therapy for heart failure. Now unable to tolerate given hypotension Allergies: Coded Allergies: No Known Allergies (Unverified , 07/24/25) Home Medications Home Medications Active Reported Venelex Ointment (Balsam Liv/[place] Oil) 56.7 Gm Oint...g. 1 Applic TP DAILY RIGHT HEEL Tylenol (Acetaminophen) 325 Mg Tablet 650 Mg PO Q6H PRN PAIN PRN Ondansetron HCl 4 Mg Tablet 1 Tab PO Q6H PRN PRN Multi Vitamin Daily (Multivitamin) 1 Each Tablet 1 Tab PO DAILY 30 Days Mucinex Cold-Flu Hbp Liq Gel (Acetaminophen/Guaifenesin) 325 Mg-200 Mg Capsule 2 Cap PO Q12H PRN Milk of Magnesia (Magnesium Hydroxide) 400 Mg/5 Ml Oral.susp 30 Ml PO DAILY 7 Days Proamatine* (Midodrine) 2.5 Mg Tablet 1 Tab PO Q8H 30 Days Lopressor tablet (Metoprolol Tartrate) 25 Mg Tablet 12.5 Mg PO BID 12.5 MG = 1/2 TABLET Melatonin 5 Mg Tab.chew 1 Tab PO HS 30 Days Magnesium Oxide (Magnesium) 200 Mg Tablet 400 Mg PO DAILY Jardiance (Empagliflozin) 10 Mg Tablet 1 Tab PO DAILY 30 Days Morrison 5/325 MG (Acetaminophen/Hydrocodone Bitart) 5 Mg/325 Mg Tablet 2 Tab PO Q4H PRN Insulin Lispro 100 Unit/Ml Vial 1 Applic SQ ACHS Fleet Enema Extra (Na Phos,M-B/Na Phos,Di-Ba) 19 Gram-7 Gram/197 Ml Enema 1 Applic RC DAILY PRN Entresto 24 mg-26 mg Tablet (Sacubitril/Valsartan) 24 Mg-26 Mg Tablet 0.5 Tab PO Q12H 30 Days Clopidogrel (Clopidogrel Bisulfate) 75 Mg Tablet 1 Tab PO DAILY 30 Days Do not stop medication unless instructed by prescriber. Bisacodyl 10 Mg Supp.rect 1 Supp RC DAILY PRN 4 Days Dulcolax (Bisacodyl) 5 Mg Tablet.dr 2 Tab PO DAILY PRN 1 Days Aspirin EC (Aspirin) 81 Mg Tablet.dr 1 Tab PO DAILY 30 Days Proventil Nebs* (Albuterol) 2.5 Mg/0.5 Ml Vial.neb 2.5 Mg IH Q4H PRN Tylenol (Acetaminophen) 325 Mg Tablet 650 Mg PO Q6H PRN PAIN MDD 3GM 30 Days not to excede 3Gm acetaminophen in 24 Hours from all sources Vitamin B-12 (Cyanocobalamin (Vitamin B-12)) 1,000 Mcg Capsule 1 Cap PO DAILY 30 Days Vitamin D3 (Cholecalciferol (Vitamin D3)) 50 Mcg (2000 Unit) Capsule 1 Cap PO DAILY 30 Days Vitamin C (Ascorbic Acid) 1,000 Mg Tablet 1 Tab PO DAILY 15 Days DIRECTED Magnesium (Magnesium Oxide) 400 Mg Magnesium Capsule 1 Cap PO DAILY 30 Days Lipitor* (Atorvastatin Calcium) 10 Mg Tablet 40 Tab PO HS 30 Days Glipizide 5 Mg Tablet 1 Tab PO DAILY 30 Days Past Medical History Medical History Comment CAD s/p LAD sent Severe DM2 HTN HLD IBS neuropathy Past Surgical History Surgical History Comment s/p amputation of left 1st and 2nd toe and right first toe. tonsils Past Social History Social History Comment hx smoking. rare ETOH. current at rehab. Physical Exam Last Vital Signs Recorded: RN Vital Signs have been reviewed: Yes, Temperature: 99.1, Source: Bladder, Heart Rate: 106, Respiratory Rate: 18, BP: 87/52, Pulse Oximetry: 93, Weight: 96.300 Physical Exam General: Awake, alert, oriented. No apparent distress Neck: Supple. Normal range of motion. No JVD Respiratory: Lungs clear and diminished in the bases. Chest: Normal shape and size. No accessory muscle use. Cardiovascular: Regular rate and rhythm. S1-S2. Systolic ejection murmur. Gastrointestinal: Abdomen is soft. Nontender to palpation. Bowel sounds present. Extremities: No lower extremity edema, cyanosis or clubbing. Neurologic: Alert and oriented x4. Nonfocal Psychiatric: Normal mood and affect. Skin: Normal color. Warm and dry. Review of Systems ROS Review of systems negative except documented in HPI. Results Echocardiogram Echocardiogram Conclusion LV appears normal in size with mild concentric hypertrophy. Overall systolic function appears mildly reduced. Pt on 0.8 mcg/kg/min of LEVO. LVEF is 45-50%. RV appears normal in size and contractility. Known Severe Aortic stenosis with a peak velocity of 4.62 m/s. MV is calcified with known mild stenosis. Valve not fully evaluated due to limited focused exams. Moderate to severe mitral regurgitation The tricuspid valve is normal in structure. Trace tricuspid regurgitation. Small anterior pericardial effusion with no evidence of hemodynamic compromise. Pleural effusion. Dictated by:KIT SOLORZANO MD Dictation date and time:08/21/251810 Electronically Signed by: KIT SOLORZANO MD Date and Time: 08/21/251810 Diagram Lab Result Diagram: 08/25/25 01508/25/25149 Assessment/Plan Additional Plan Patient presented secondary to hypotension. The following is her problem list: Severe aortic stenosis --referral sent to [facility] --we will attempt to obtain TAVR CT while she is here in the hospital. Currently, she is hypotensive in her heart rate is around 100. She will need to be around [address] Evaluate tomorrow Hypotension/cardiogenic shock --she has been off Levophed since last night (08/24/25) Coronary artery disease --status post PCI of the LAD --continue aspirin, Plavix, statin. Goal LDL less than 55 NSTEMI --no current chest pain. Likely demand ischemia secondary to her JAMES, hypotension Paroxysmal atrial fibrillation --had an episode of atrial fibrillation. Currently in sinus rhythm. --we will plan to transition amiodarone to oral amiodarone Heart failure with reduced ejection fraction --EF around 40%. Unable to tolerate guideline directed medical therapy secondary to hypotension. Acute kidney injury Kidney function improving. --avoid nephrotoxic drugs. Case discussed with Dr. Samson Hamilton who is in agreement with this plan. Supervising MD Supervising Physician: CANDIDA White NP Aug 25, 2025 13:41
--- NOTE | 2025-08-25 14:16 | CONSULTATION REPORT - RESIDENT ---
Consult Providers to CC Resident Creating Document: VIPUL WHELANGOLDYRYAN CESAR CC: SRIDEVI KAISER MD History of Present Illness Reason for Admit\\Complaint: Dizziness History of Present Illness Patient is a 74-year-old female with a history of CAD-s/p proximal LAD stenting on 07/28/2025, type 2 diabetes, hypertension, hyperlipidemia, heart failure with reduced ejection fraction who came to the ED on 08/20/2025 with complaints of "passing out". Patient report that she had two episodes of loss of consciousness in the past 3 weeks prior to admission, as well as increasing shortness of breath, orthopnea and PND. On the day of admission, patient was found to be significantly hypotensive in ED, and was started on Levophed and admitted to the ICU. Patient has been in the ICU with diagnosis of cardiogenic shock 2/2 NSTEMI. Patient remained in the ICU until today, where in view of improvement of blood pressure and no need for further vasopressors patient was downgraded to PCU. However, this morning patient also presented with palpitations, EKG showed atrial fibrillation with RVR, reason why patient was started on amiodarone drip and is currently on normal sinus rhythm. Patient does not have history of atrial fibrillation. Cardiology is following. Allergies: Coded Allergies: No Known Allergies (Unverified , 07/24/25) Home Medications Home Medications Active Reported Venelex Ointment (Balsam Liv/[place] Oil) 56.7 Gm Oint...g. 1 Applic TP DAILY RIGHT HEEL Tylenol (Acetaminophen) 325 Mg Tablet 650 Mg PO Q6H PRN PAIN PRN Ondansetron HCl 4 Mg Tablet 1 Tab PO Q6H PRN PRN Multi Vitamin Daily (Multivitamin) 1 Each Tablet 1 Tab PO DAILY 30 Days Mucinex Cold-Flu Hbp Liq Gel (Acetaminophen/Guaifenesin) 325 Mg-200 Mg Capsule 2 Cap PO Q12H PRN Milk of Magnesia (Magnesium Hydroxide) 400 Mg/5 Ml Oral.susp 30 Ml PO DAILY 7 Days Proamatine* (Midodrine) 2.5 Mg Tablet 1 Tab PO Q8H 30 Days Lopressor tablet (Metoprolol Tartrate) 25 Mg Tablet 12.5 Mg PO BID 12.5 MG = 1/2 TABLET Melatonin 5 Mg Tab.chew 1 Tab PO HS 30 Days Magnesium Oxide (Magnesium) 200 Mg Tablet 400 Mg PO DAILY Jardiance (Empagliflozin) 10 Mg Tablet 1 Tab PO DAILY 30 Days Gray 5/325 MG (Acetaminophen/Hydrocodone Bitart) 5 Mg/325 Mg Tablet 2 Tab PO Q4H PRN Insulin Lispro 100 Unit/Ml Vial 1 Applic SQ ACHS Fleet Enema Extra (Na Phos,M-B/Na Phos,Di-Ba) 19 Gram-7 Gram/197 Ml Enema 1 Applic RC DAILY PRN Entresto 24 mg-26 mg Tablet (Sacubitril/Valsartan) 24 Mg-26 Mg Tablet 0.5 Tab PO Q12H 30 Days Clopidogrel (Clopidogrel Bisulfate) 75 Mg Tablet 1 Tab PO DAILY 30 Days Do not stop medication unless instructed by prescriber. Bisacodyl 10 Mg Supp.rect 1 Supp RC DAILY PRN 4 Days Dulcolax (Bisacodyl) 5 Mg Tablet.dr 2 Tab PO DAILY PRN 1 Days Aspirin EC (Aspirin) 81 Mg Tablet.dr 1 Tab PO DAILY 30 Days Proventil Nebs* (Albuterol) 2.5 Mg/0.5 Ml Vial.neb 2.5 Mg IH Q4H PRN Tylenol (Acetaminophen) 325 Mg Tablet 650 Mg PO Q6H PRN PAIN MDD 3GM 30 Days not to excede 3Gm acetaminophen in 24 Hours from all sources Vitamin B-12 (Cyanocobalamin (Vitamin B-12)) 1,000 Mcg Capsule 1 Cap PO DAILY 30 Days Vitamin D3 (Cholecalciferol (Vitamin D3)) 50 Mcg (2000 Unit) Capsule 1 Cap PO DAILY 30 Days Vitamin C (Ascorbic Acid) 1,000 Mg Tablet 1 Tab PO DAILY 15 Days DIRECTED Magnesium (Magnesium Oxide) 400 Mg Magnesium Capsule 1 Cap PO DAILY 30 Days Lipitor* (Atorvastatin Calcium) 10 Mg Tablet 40 Tab PO HS 30 Days Glipizide 5 Mg Tablet 1 Tab PO DAILY 30 Days Past Medical History Past Medical History CAD s/p PCI on 07/28/2025 Heart failure with preserved ejection fraction Diabetes mellitus type 2 Hypertension Hyperlipidemia IBS Neuropathy Past Surgical History Surgical History Comment S/p amputation of left 1st and 2nd toe and right 1st toe many years back, proximal LAD stenting on 07/28/2025, tonsillectomy Past Social History Social History Comment Quit smoking tobacco about 25 years back and smoked about 3-5 cigarettes per day for about 10 years. Occasionally drinks wine. Denied abusing any other recreational drugs Lives alone, independent Uses a FWW PCP: IMELDA Roberts ROS ROS All systems were reviewed except for pertinent positives mentioned in HPI Reports back pain Reports insomnia Reports constipation Exam Vitals: Vital Signs Date Time Temp Pulse Resp B/P (MAP) Pulse Ox O2 Delivery O2 Flow Rate FiO2 08/25/25 13:00 99.0 96 16 93/53 (66) 96 Nasal Cannula 1.5 General: General: awake, alert oriented to place, time, and person HEENT: Central line present in right IJ. Hard of hearing. No pallor present, no icterus, moist mucous membranes Neck: No masses and tenderness Resp: Unlabored. Lungs clear to auscultation bilaterally. Chest: Normal expansion Cardiovascular: Regular Rate and rhythm, normal S1 and S2, systolic ejection murmur, rub or gallop Abdomen: Soft and nontender, no organomegaly, no guarding and rigidity, bowel sounds present Neuro: No focal weakness in the upper and lower limb muscles, power of the muscles 5/5 bilateral upper and lower extremities, normal reflexes bilaterally. Cranial nerves intact Genitourinary: Edwards catheter in place Extremities: No cyanosis,clubbing or edema Skin: Warm and Dry. No lesions Psych: Normal affect and mood, cooperative with the exam Diagnostic Data Last Recorded Lab Results: 08/25/25 01508/25/25149 Diagnostic Data: Laboratory Tests Test 08/22/25 06:36 08/25/25 01:50 APTT (Heparin Protocol) 112 SECONDS (45-60) *H Prothrombin Time 11.7 SECONDS (9.0-12.0) INR International Normalized Ratio 1.2 INR Activated Partial Thromboplast Time 24 SECONDS (22-32) Coagulation Comments Additional Plan AFib RVR, new onset, now NSR NSTEMI, stable Cardiogenic Shock, resolved CAD s/p PCI go LAD on 07/28/2025 Severe aortic stenosis Heart failure with reduced ejection fraction, class III, stage D Patient remained in the ICU for 4 days, now downgraded to PCU Currently mildly hypotensive but hemodynamically stable No longer requiring vasopressors Echocardiogram from 08/20/2025 shows EF of 45-50% with severe aortic stenosis On baby aspirin and Plavix 75 mg daily since 07/28/2025 Continue metoprolol tartrate 25 mg b.i.d. Continue atorvastatin Continue Jardiance Hold Entresto and spironolactone due to hypotension Started on amiodarone drip today by Cardiology Will transition to p.o. amiodarone 200 mg b.i.d. per Cardiology recommendations Per Cardiology, she will be on aspirin and Plavix for 30 days, then will start Eliquis 5 mg b.i.d. and stop aspirin Start Eliquis on 08/28/2025 Will likely need TAVR workup in the near future Type 2 diabetes A1c from June 29.8 According to med rec she is on glipizide and insulin She did have an episode of hypoglycemia on admission, but otherwise has been hyperglycemic Continue Jardiance as above Start insulin lispro 3 units with meals JAMES, likely prerenal secondary to tubular stasis, resolved Creatinine has been stable at 1.2 Continue monitoring CMP Judicious hydration due to CHF Constipation Patient has not had a bowel movement in 7 days She has received milk of Mag and prune juice in ICU Will order a Dulcolax suppository stat Will add Colace scheduled Hypertension Holding antihypertensive as above Hyperlipidemia Continue atorvastatin 40 mg daily Back pain Continue Gray 5 p.r.n., morphine Insomnia Continue melatonin HS Normocytic anemia Hemoglobin has been around 8 Her baseline was 11.7 Will obtain iron studies Continue monitoring CBC Hypocalcemia Hypomagnesemia Corrected calcium is normal Magnesium replacement protocol in place Will continue monitoring Code Status: Full code DVT prophylaxis: Aspirin and Plavix Analgesia/sedation: Gray, morphine Lines/tubes: PIV, central line. Will remove central line in the a.m. if stable Nutrition: Carb controlled/heart healthy diet PT: Ordered Prognosis: Guarded Disposition: Continue care in PCU. Continue medical management Ryan Guzman MD Internal Medicine Resident PGY-2 Date of Service: Aug 25, 2025 Billing Provider: SRIDEVI KAISER MD, LEONARDO LUIS Aug 25, 2025 14:16
[2025-08-25] MEDS ORDERED: glucagon, human recombinant 1mg kit SUBCUT PRN (15:25)
[2025-08-25] MEDS ORDERED: DEXTROSE 15 GM of carb/4 tabs (each vial/BOTTLE has 4 tablets) PO PRN ×2 (15:25)
[2025-08-25] MEDS ORDERED: dextrose 50%-water 50ml dispensing syringe IV PRN ×2 (15:25)
[2025-08-25] MEDS ORDERED: bisacodyl 5mg tablet.DR PO PRN (15:30)
[2025-08-25] MEDS ORDERED: bisacodyl 10mg suppository rectal RC PRN (15:30)
[2025-08-25] MEDS ORDERED: potassium Cl 20 mEq SR tablet PO PRN ×2 (15:40)
[2025-08-25] MEDS ORDERED: magnesium sulf-water 4G/100mL 100 ML IV PRN (15:40)
[2025-08-25] MEDS ORDERED: magnesium Cl slow-release 64mg tablet PO PRN (15:40)
[2025-08-25] MEDS ORDERED: magnesium sulf-water 2g/50mL 50 ML IV PRN (15:40)
[2025-08-25] MEDS ORDERED: potassium Cl 40MEQ/1/2NS 520ml 520 ML IV PRN (15:40)
[2025-08-25] MEDS: bisacodyl 10mg suppository rectal RC STA (17:11)
[2025-08-25] MEDS: INSULIN LISPRO 100 UNIT/ML INSULN.PEN MULTI-DOSE SQ SCH (18:00)
[2025-08-25] MEDS: K and/or MAG REPLACEMENT MC SCH (20:00)
[2025-08-26] VITALS (42 sets, daily range): BP systolic 74–127; BP diastolic 39–87; PULSE 64–110; RESP 9–23; TEMP 97.4–97.5; O2SAT 95–98
[2025-08-26] MEDS ORDERED: NORepinephrine 8mg/ 250ml NS 250 ML IV SCH (01:55)
[2025-08-26] MEDS: albumin (human) 25% 100 ML IV solution IV ONE (02:31)
--- NOTE | 2025-08-26 02:33 | RADIOLOGY REPORT ---
CHEST RADIOGRAPH Indication: sob Technique: Single frontal view of the chest was obtained COMPARISON: DI CHEST,SINGLE VIEW on DOS: 08/20/25, DI CHEST,SINGLE VIEW on DOS: 08/20/25, DI CHEST,SINGLE VIEW on DOS: 07/24/25 FINDINGS: Lines and Tubes: Right internal jugular central venous catheter unchanged. Lungs: Mildly progressive small bilateral pleural effusions and Bibasilar pulmonary airspace disease. Mild diffuse increased prominence of the pulmonary vasculature. No pneumothorax. Cardiomediastinal contours: Cardiomegaly. Bones: Unremarkable IMPRESSION: 1. Mildly progressive small bilateral pleural effusions and bibasilar pulmonary airspace disease. 2. Mild pulmonary vascular congestion. 3. Cardiomegaly. 4. Right internal jugular central venous catheter.
[2025-08-26 02:49] LABS: MEAN PLATELET VOLUME 7.4 FL (7.4-10.4); RED CELL DISTRIBUTION WIDTH 17.5 % (11.5-14.5)
[2025-08-26 02:57] LABS: APTT 25 SECONDS (22-32); INR 1.2 INR
[2025-08-26 03:14] LABS: % IRON SATURATION 8 % (11-46)
[2025-08-26 03:38] LABS: CREATININE 1.55 MG/DL (0.40-0.90); PHOSPHORUS 3.6 MG/DL (2.3-4.5); TOTAL CARBON DIOXIDE 32.0 MMOL/L (24-32); eCRCL 33 ML/MIN; eGFR 33 ML/MIN
[2025-08-26] MEDS: EMPAGLIFLOZIN 10 MG TABLET PO SCH (08:19)
[2025-08-26] MEDS: normal saline 1000ml 1,000 ML IV SCH (09:07)
[2025-08-26] MEDS: normal saline 1000ml 1,000 ML IV ONE (09:08)
[2025-08-26 09:15] LABS: CREATININE,URINE RANDOM 86.0 MG/DL; TOTAL PROTEIN,URINE RANDOM 21.6 MG/DL; UA UREA RANDOM 753.0 MG/DL
--- NOTE | 2025-08-26 11:29 | PROGRESS NOTE ---
Progress Note Cardiology Providers to CC ~ Subjective Subjective Patient has a low blood pressure overnight. She was given IV fluids 1 L bolus as well as 25% albumin bolus. She is sitting up in a chair. Complains of continued shortness for breath. Objective Result Diagram: 08/26/2522308/26/25223 Objective General: Awake, alert, oriented. No apparent distress Neck: Supple. Normal range of motion. No JVD Respiratory: Lungs clear and diminished in the bases. Chest: Normal shape and size. No accessory muscle use. Cardiovascular: Regular rate and rhythm. S1-S2. Systolic ejection murmur. Extremities: mild edema. No cyanosis or clubbing. Neurologic: Alert and oriented x4. Nonfocal Psychiatric: Normal mood and affect. Skin: Normal color. Warm and dry. Coagulation Studies Laboratory Tests Test 08/22/25 06:36 08/26/25 02:24 APTT (Heparin Protocol) 112 SECONDS (45-60) *H Prothrombin Time 12.2 SECONDS (9.0-12.0) H INR International Normalized Ratio 1.2 INR Activated Partial Thromboplast Time 25 SECONDS (22-32) Coagulation Comments Problem\Assessment\Plan Additional Plan Patient presented secondary to hypotension. The following is her problem list: Severe aortic stenosis --referral sent to [facility] --we will attempt to obtain TAVR CT while she is here in the hospital. Currently, she is hypotensive in her heart rate is around 100. She will need to be around [address] Did not receive ordered metop 2/2 low BP. will continue to follow Hypotension/cardiogenic shock --she has been off Levophed since last night (08/24/25) --08/26/25: had hypotension overnight. Recommend stop IV fluids. If needed start midodrine. Coronary artery disease --status post PCI of the LAD --continue aspirin, Plavix, statin. Goal LDL less than 55 NSTEMI --no current chest pain. Likely demand ischemia secondary to her JAMES, hypotension Paroxysmal atrial fibrillation --had an episode of atrial fibrillation. Currently in sinus rhythm. --we will plan to transition amiodarone gtt to oral amiodarone Heart failure with reduced ejection fraction --EF around 40%. Unable to tolerate guideline directed medical therapy secondary to hypotension. Acute kidney injury Kidney function improving. --avoid nephrotoxic drugs. JAMES with CKD --Improved, but worse overnight likely 2/2 hypotension. --Monitoring. Case discussed with Dr. Samson Hamilton who is in agreement with this plan. Supervising Physician: CANDIDA White NP Aug 26, 2025 11:29
--- NOTE | 2025-08-26 13:08 | PROGRESS NOTE- Residence ---
Progress Note - Resident Providers to CC Resident Creating Document: RYAN MASON CC: SRIDEVI KAISER MD ~ Antibiotic Timeout Antibiotic Ordered?: No Subjective Patient was seen and examined today on the bedside, she was sitting comfortably with 2L oxygen nasal cannula. No acute event overnight. Patient reports that her shortness of breath has improved, she denies any palpitations, chest pain or lightheadedness. Patient complains of back pain, for which she is taking [place] p.r.n. Objective Vital Signs Date Time Temp Pulse Resp B/P (MAP) Pulse Ox O2 Delivery O2 Flow Rate FiO2 08/26/25 12:01 96 08/26/25 12:01 126/87 (100) 08/26/25 11:29 16 95 Nasal Cannula 2.0 08/26/25 08:00 N/A 08/26/25 06:00 97.5 Result Diagram: 08/26/25 0224 08/26/25 0224 General: awake, alert oriented to place, time, and person HEENT: Central line present in right IJ. Hard of hearing. No pallor present, no icterus, moist mucous membranes Neck: No masses and tenderness Resp: Unlabored. Lungs clear to auscultation bilaterally. Chest: Normal expansion Cardiovascular: Regular Rate and rhythm, normal S1 and S2, systolic ejection murmur, rub or gallop Abdomen: Soft and nontender, no organomegaly, no guarding and rigidity, bowel sounds present Neuro: No focal weakness in the upper and lower limb muscles, power of the muscles 5/5 bilateral upper and lower extremities, normal reflexes bilaterally. Cranial nerves intact Genitourinary: Edwards catheter in place Extremities: No cyanosis,clubbing or edema Skin: Warm and Dry. No lesions Psych: Normal affect and mood, cooperative with the exam Coagulation Studies Laboratory Tests Test 08/22/25 06:36 08/26/25 02:24 APTT (Heparin Protocol) 112 SECONDS (45-60) *H Prothrombin Time 12.2 SECONDS (9.0-12.0) H INR International Normalized Ratio 1.2 INR Activated Partial Thromboplast Time 25 SECONDS (22-32) Coagulation Comments Assessment Assessment Patient is a 74-year-old female with a history of CAD-s/p proximal LAD stenting on 07/28/2025, type 2 diabetes, hypertension, hyperlipidemia, heart failure with reduced ejection fraction who came to the ED on 08/20/2025 with complaints of "passing out". Patient report that she had two episodes of loss of consciousness in the past 3 weeks prior to admission, as well as increasing shortness of breath, orthopnea and PND. She had a cardiogenic shock 2/2 to NSTEMI and was in the ICU for 4 days. She was downgraded to PCU yesterday. She had a new onset AFib with RVR. Plan Plan AFib RVR, new onset, now NSR NSTEMI, stable Cardiogenic Shock, resolved CAD s/p PCI go LAD on 07/28/2025 Severe aortic stenosis Heart failure with reduced ejection fraction, class III, stage D Patient remained in the ICU for 4 days, now downgraded to PCU Currently mildly hypotensive but hemodynamically stable No longer requiring vasopressors Echocardiogram from 08/20/2025 shows EF of 45-50% with severe aortic stenosis On baby aspirin and Plavix 75 mg daily since 07/28/2025 Continue metoprolol tartrate 25 mg b.i.d. Continue atorvastatin Continue Jardiance Hold Entresto and spironolactone due to hypotension Completed amiodarone drip yesterday per Cardiology Continue p.o. amiodarone 200 mg b.i.d. per Cardiology recommendations Per Cardiology, she will be on aspirin and Plavix for 30 days, then will start Eliquis 5 mg b.i.d. and stop aspirin Start Eliquis on 08/28/2025 Will likely need TAVR workup CTA in the near future, for which her heart rate should be less than 70 as per cardiology recommendations Type 2 diabetes A1c from 01.30 According to med rec she is on glipizide and insulin She did have an episode of hypoglycemia on admission, but otherwise has been hyperglycemic Continue Jardiance as above Continue insulin lispro 3 units with meals, Lantus 15U and supplemental JAMES, likely prerenal secondary to tubular stasis, resolved Creatinine was 1.5 this morning up from 1.2 yesterday Continue monitoring CMP Judicious hydration due to CHF Constipation She passed stool last night, after Dulcolax suppository was placed Continue bowel care Hypertension Holding antihypertensive as above Hyperlipidemia Continue atorvastatin 40 mg daily Back pain Continue [place] 5 p.r.n., morphine Insomnia Continue melatonin HS Anemia of chronic disease, stable Hemoglobin has been around 8 Her baseline was 11.7 Iron studies are back, consistent with anemia of chronic disease Transfuse if hb<7 Hypocalcemia Hypomagnesemia Corrected calcium is normal Magnesium replacement protocol in place Will continue monitoring Code Status: . Code DVT prophylaxis: Aspirin Plavix Analgesia/sedation: [place] Nutrition: Carb controlled/heart healthy PT: Ordered Prognosis: Guarded Disposition: Continue care in PCU. Continue medical management. Continue recommendations per Cardiology. Plan is to DC back to [facility] once stable Ryan Ibarra MD Internal Medicine Resident PGY-2 Date of Service: Aug 26, 2025 Billing Provider: SRIDEVI KAISER MD, LEONARDO LUIS Aug 26, 2025 13:08
[2025-08-26] MEDS: midodrine tablet 2.5 MG TABLET PO SCH (15:24)
[2025-08-27] VITALS (9 sets, daily range): BP systolic 87–123; BP diastolic 52–76; PULSE 57–79; RESP 9–20; TEMP 97.1–97.4; O2SAT 95–97
[2025-08-27] MEDS ORDERED: IODIXANOL 320 MG/ML INFUS..BTL 100ML IV ONE (06:49)
[2025-08-27 07:05] LABS: MEAN PLATELET VOLUME 7.8 FL (7.4-10.4); RED CELL DISTRIBUTION WIDTH 17.7 % (11.5-14.5)
[2025-08-27 07:27] LABS: INR 1.2 INR
[2025-08-27 07:32] LABS: APTT 20 SECONDS (22-32)
[2025-08-27 07:54] LABS: CREATININE 1.66 MG/DL (0.40-0.90); PHOSPHORUS 3.9 MG/DL (2.3-4.5); TOTAL CARBON DIOXIDE 25.5 MMOL/L (24-32); eCRCL 30 ML/MIN; eGFR 30 ML/MIN
[2025-08-27] MEDS: hydrocortisone sod succ/PF 100mg/2ml inj. IV SCH (08:00)
[2025-08-27] MEDS: INSULIN LISPRO 100 UNIT/ML INSULN.PEN MULTI-DOSE SQ SCH (09:00)
--- NOTE | 2025-08-27 13:03 | DISCHARGE SUMMARY-Residence ---
Discharge Summary Providers to CC Resident Creating Document: VIPUL GUZMANCHARLIEMOIZ GUERRERO CC: SRIDEVI KAISER MD ~ Discharge Summary Admission Diagnosis: Possible cardiogenic shock Hospital Course DATE OF ADMISSION: 08/20/2025 DATE OF DISCHARGE: 08/27/2025 Discharge Diagnosis\Comment: Paroxysmal AFib RVR, new onset, now NSR NSTEMI, stable Cardiogenic Shock, resolved CAD s/p PCI go LAD on 07/28/2025 Severe aortic stenosis Acute on chronic heart failure with reduced ejection fraction, class III, stage D Moderate to severe mitral regurgitation Mild bilateral pleural effusions 2/2 CHF Type 2 diabetes JAMES, likely prerenal secondary to tubular stasis, resolved Constipation Hypertension Hyperlipidemia Chronic back pain Insomnia Anemia of chronic disease, stable Hypocalcemia, improved Hypomagnesemia, resolved Operations\Procedures: None Consultants: Dr Samson Hamilton, Cardiology Complications: None Condition on DC: Stable for transfer Discharge Summary: Patient was admitted with the following HPI by Dr. Shashi Ulloa: The 74-year-old female with a past medical history of CAD-s/p proximal LAD stenting on 07/28/2025, mellitus, hypertension, hyperlipidemia was transferred from [facility] rehab for hypotension. Mentioned that she has been feeling dizzy since morning. Did not have any fall. Was nauseous yesterday and threw up food. Mentioned that the shortness of breath is there for few months and is now getting worse. Also complains of orthopnea and PND. On Oxygen supplementation at the rehab but denied using any oxygen at home before cardiac stenting. Unsure how much oxygen she was requiring at the rehab. Denies any chest pain, nausea and vomiting now, abdominal pain, constipation or diarrhea, dysuria, blurry vision. Walks using a cane. Discharged on aspirin, Plavix, beta- marisol, Entresto, Jardiance and midodrine but no Lasix. She received 20 mg IV Lasix during her hospital stay. Hospital course: On the day of admission, patient was found to be significantly hypotensive in ED, was started on vasopressors and admitted to the ICU. Patient remained in the ICU for a total of 5 days with diagnosis of cardiogenic shock 2/2 NSTEMI. Once patient was taken off of vasopressors and blood pressure stabilized, patient was downgraded to PCU where the hospitalist team took over her care. On 08/25/2025 when patient was transferred to PCU patient presented with new onset AFib RVR and cardiology was consulted. Patient was started on amiodarone drip and successfully converted to normal sinus rhythm, patient was then transitioned to p.o. amiodarone. Patient was also continued on metoprolol tartrate, patient did have further episodes of hypotension, however eventually blood pressure s tabilized with the help of midodrine and hydrocortisone. Patient was also managed for JAMES and shocky liver. Her kidneys significantly improved compared to admission as well as LFTs. Other comorbidities including type 2 diabetes for also managed. Patient remained hemodynamically stable for the rest of her hospital course. Plan is to transfer her to rehab today. She will be worked up as an outpatient for a TAVR with Dr. Hamilton in the near future. In terms of anticoagulation, patient is to complete dual antiplatelet therapy on 08/28/2025, and transition to Eliquis and Plavix per cardiology recommendations. Imaging: X-ray on admission: Mild pulmonary vascular congestion. Follow up x-ray on 08/26/2025: Mildly progressive small bilateral pleural effusions and bibasilar pulmonary airspace disease. Mild pulmonary vascular congestion. Cardiomegaly. Echocardiogram: LV appears normal in size with mild concentric hypertrophy. Overall systolic function appears mildly reduced. Pt on 0.8 mcg/kg/min of LEVO. LVEF is 45-50%. RV appears normal in size and contractility. Known Severe Aortic stenosis with a peak velocity of 4.62 m/s. MV is calcified with known mild stenosis. Valve not fully evaluated due to lopez ited focused exams. Moderate to severe mitral regurgitation The tricuspid valve is normal in structure. Trace tricuspid regurgitation. Small anterior pericardial effusion with no evidence of hemodynamic compromise. Pleural effusion. Laboratory Tests: Test 08/25/25 17:22 08/25/25 21:24 08/26/25 02:24 08/26/25 06:57 Glucometer 198 mg/dl 303 mg/dl 204 mg/dl White Blood Count 10.2 X10'3 Red Blood Count 2.79 X10'6 Hemoglobin 8.4 g/dl Hematocrit 25.3 % Mean Corpuscular Volume 90.6 FL Mean Corpuscular Hemoglobin 30.2 PG Mean Corpuscular Hemoglobin Concent 33.3 g/dL Red Cell Distribution Width 17.5 % Platelet Count 293 X10'3 Mean Platelet Volume 7.4 FL Neutrophils (%) (Auto) 79.0 % Lymphocytes (%) (Auto) 11.3 % Monocytes (%) (Auto) 9.5 % Eosinophils (%) (Auto) 0.1 % Basophils (%) (Auto) 0.1 % Neutrophils # (Auto) 8.0 X10'3 Lymphocytes # (Auto) 1.1 X10'3 Monocytes # (Auto) 1.0 X10'3 Eosinophils # (Auto) 0.0 X10'3 Basophils # (Auto) 0.0 X10'3 CBC Comment Prothrombin Time 12.2 SECONDS INR International Normalized Ratio 1.2 INR Activated Partial Thromboplast Time 25 SECONDS Coagulation Comments Sodium Level 139 MMOL/L Potassium Level 4.2 MMOL/L Chloride Level 102 MMOL/L Carbon Dioxide Level 32.0 MMOL/L Anion Gap 5 Blood Urea Nitrogen 42 MG/DL Creatinine 1.55 MG/DL Estimated GFR/1.73 m2 33 ML/MIN BUN/Creatinine Ratio 27.1 Glucose Level 228 MG/DL Lactic Acid Level 1.8 MMOL/L Calcium Level 8.1 MG/DL Phosphorus Level 3.6 MG/DL Magnesium Level 2.4 MG/DL Iron Level 19 UG/DL Total Iron Binding Capacity 230 UG/DL Percent Iron Saturation 8 % Ferritin 171 NG/ML Total Bilirubin 0.5 MG/DL Aspartate Amino Transf (AST/SGOT) 40 U/L Alanine Aminotransferase (ALT/SGPT) 720 U/L Alkaline Phosphatase 126 IU/L Total Protein 5.6 G/DL Albumin 2.5 G/DL Globulin 3.1 G/DL Albumin/Globulin Ratio 0.8 Chemistry Comments Test 08/26/25 08:35 08/26/25 12:25 08/26/25 16:55 08/26/25 19:52 Urine Eosinophils No eos /HPF Urine Random Creatinine 86.0 MG/DL Urine Random Total Protein 21.6 MG/DL Urine Random Sodium < 15 MEQ/L Urine Random Potassium 64 MEQ/L Urine Random Urea 753.0 MG/DL Glucometer 265 mg/dl 291 mg/dl 298 mg/dl Test 08/27/25 06:21 08/27/25 12:10 White Blood Count 11.6 X10'3 Red Blood Count 2.93 X10'6 Hemoglobin 9.2 g/dl Hematocrit 27.3 % Mean Corpuscular Volume 90.0 FL Mean Corpuscular Hemoglobin 30.3 PG Mean Corpuscular Hemoglobin Concent 33.6 g/dL Red Cell Distribution Width 17.7 % Platelet Count 292 X10'3 Mean Platelet Volume 7.8 FL Neutrophils (%) (Auto) 84.0 % Lymphocytes (%) (Auto) 8.8 % Monocytes (%) (Auto) 7.1 % Eosinophils (%) (Auto) 0 % Basophils (%) (Auto) 0.1 % Neutrophils # (Auto) 9.8 X10'3 Lymphocytes # (Auto) 1.0 X10'3 Monocytes # (Auto) 0.8 X10'3 Eosinophils # (Auto) 0.0 X10'3 Basophils # (Auto) 0.0 X10'3 CBC Comment Prothrombin Time 11.7 SECONDS INR International Normalized Ratio 1.2 INR Activated Partial Thromboplast Time 20 SECONDS Coagulation Comments Sodium Level 140 MMOL/L Potassium Level 4.3 MMOL/L Chloride Level 104 MMOL/L Carbon Dioxide Level 25.5 MMOL/L Anion Gap 11 Blood Urea Nitrogen 54 MG/DL Creatinine 1.66 MG/DL Estimated GFR/1.73 m2 30 ML/MIN BUN/Creatinine Ratio 32.5 Glucose Level 234 MG/DL Calcium Level 8.3 MG/DL Phosphorus Level 3.9 MG/DL Magnesium Level 2.6 MG/DL Total Bilirubin 0.6 MG/DL Aspartate Amino Transf (AST/SGOT) 38 U/L Alanine Aminotransferase (ALT/SGPT) 537 U/L Alkaline Phosphatase 115 IU/L Total Protein 6.4 G/DL Albumin 3.1 G/DL Globulin 3.3 G/DL Albumin/Globulin Ratio 0.9 Chemistry Comments Glucometer 209 mg/dl Discharge physical exam: Vital Signs Date Time Temp Pulse Resp B/P (MAP) Pulse Ox O2 Delivery O2 Flow Rate FiO2 08/27/25 10:40 97.4 66 12 96/53 (67) 97 Nasal Cannula 2.0 08/27/25 08:00 N/A General: awake, alert oriented to place, time, and person HEENT: Hard of hearing. No pallor present, no icterus, moist mucous membranes Neck: No masses and tenderness Resp: Unlabored. Lungs clear to auscultation bilaterally. Chest: Normal expansion Cardiovascular: Regular Rate and rhythm, normal S1 and S2, systolic ejection murmur, rub or gallop Abdomen: Soft and nontender, no organomegaly, no guarding and rigidity, bowel s ounds present Neuro: No focal weakness in the upper and lower limb muscles, power of the muscles 5/5 bilateral upper and lower extremities, normal reflexes bilaterally. Cranial nerves intact Extremities: No cyanosis,clubbing or edema Skin: Warm and Dry. No lesions Psych: Normal affect and mood, cooperative with the exam Disposition: Patient will be transferred to [facility] today *Problems/Diagnosis: (1) Aortic stenosis Status: Chronic (2) NSTEMI (non-ST elevated myocardial infarction) Status: Acute (3) Acute systolic (congestive) heart failure Status: Acute (4) Acute hypotension Status: Acute Total Time Spent on D/C: > 30 Minutes Date of Service: Aug 27, 2025 Billing Provider: SRIDEVI KAISER MD, LEONARDO LUIS Aug 27, 2025 12:50
== END 2025-08-27 13:48 | DRG 280 ==
LOC: ER 15:38 → ED HOLD 17:41 → CICU 2S 20:06 → PCU 3S 08-25 13:57
PROVIDERS: ADMIT Internal Medicine Critical Care Medicine; ATTEND Internal Medicine Critical Care Medicine
DX: I21.4 Non-ST elevation (NSTEMI) myocardial infarction (principal); I50.23 Acute on chronic systolic (congestive) heart failure; N17.0 Acute kidney failure with tubular necrosis; R57.0 Cardiogenic shock; K72.00 Acute and subacute hepatic failure without coma; I13.0 Hypertensive heart and chronic kidney disease with heart failure and stage 1 through stage 4 chronic kidney disease, or unspecified chronic kidney disease; D63.8 Anemia in other chronic diseases classified elsewhere; E83.51 Hypocalcemia; I48.0 Paroxysmal atrial fibrillation; G47.09 Other insomnia; J96.10 Chronic respiratory failure, unspecified whether with hypoxia or hypercapnia; Z79.01 Long term (current) use of anticoagulants; N18.4 Chronic kidney disease, stage 4 (severe); E11.22 Type 2 diabetes mellitus with diabetic chronic kidney disease; I34.0 Nonrheumatic mitral (valve) insufficiency; E87.20 Acidosis, unspecified; I95.9 Hypotension, unspecified; K59.09 Other constipation; E83.42 Hypomagnesemia; E11.40 Type 2 diabetes mellitus with diabetic neuropathy, unspecified; K58.9 Irritable bowel syndrome, unspecified; G89.29 Other chronic pain; M54.89 Other dorsalgia; I25.10 Atherosclerotic heart disease of native coronary artery without angina pectoris; I35.0 Nonrheumatic aortic (valve) stenosis; E78.5 Hyperlipidemia, unspecified; Z98.61 Coronary angioplasty status; Z79.82 Long term (current) use of aspirin; Z79.899 Other long term (current) drug therapy; Z79.4 Long term (current) use of insulin; Z79.84 Long term (current) use of oral hypoglycemic drugs; I25.2 Old myocardial infarction
CPT/HCPCS: 36415; 36600; 71045; 80048; 80053; 80061; 80076; 80202; 80305; 80329; 81001; 82570; 82728; 82803; 82948; 83540; 83550; 83605; 83735; 83880; 83935; 84100; 84133; 84145; 84156; 84300; 84443; 84466; 84484; 84540; 85007; 85018; 85025; 85610; 85730; 86704; 86706; 86709; 86803; 86885; 86900; 86901; 87040; 87077; 87081; 87088; 87186; 87207; 87340; 87522; 93005; 93308; 96365; 96375; 97116; 97161; 97530; 99291; A6213; A6258; A6449; C1751; C1758; G0378; J0282; J0692; J1100; J1644; J1720; J1815; J2270; J3375; J3490; J7030; J7040; J7070; P9047; Q9967

== ENCOUNTER 2025-09-02 09:26 | Outpatient (CLI) | payer MEDICARE, OTHER ==
[~2025-09-02 09:26] MED LIST changes: +ACET-1008 PO; +ACET1CAP12 PO; +ALB0.5UD IH; +ASPI81TA52 PO; +BALS60OI TP; +BISA-155 PO; +BISA10SU11 RC; +CLOP75TA34 PO; +EMPA10TA PO; +HYDR-3965 PO; +INSU100V49 SQ; +IODIXANOL 320 MG/ML INFUS..BTL 100ML IV ONE; +LOP12.5T PO; +MAGN200T5 PO; +MAGN400O6 PO; +MELA5TAB50 PO; +MIDO2.5T PO; +MULT-1085 PO; +NA P230E RC; +ONDA-103 PO; +SACU1TAB PO
[2025-09-02 09:54] LABS: MEAN PLATELET VOLUME 7.0 FL (7.4-10.4); RED CELL DISTRIBUTION WIDTH 18.0 % (11.5-14.5)
[2025-09-02 10:09] LABS: APTT 27 SECONDS (22-32); INR 1.3 INR
[2025-09-02 10:17] LABS: CREATININE 1.45 MG/DL (0.40-0.90); PRO BRAIN NATRIURETIC PEPTIDE 13056 PG/ML (0-125); TOTAL CARBON DIOXIDE 31.6 MMOL/L (24-32); eGFR 35 ML/MIN
[2025-09-02] MEDS ORDERED: APIX5TAB3 PO (15:58)
--- NOTE | 2025-09-03 14:53 | RADIOLOGY REPORT ---
CT CTA TAVR INDICATION: Stenosis TECHNIQUE: Gated CT angiography of the heart was performed along with CT angiography of the lower neck, chest, abdomen, and pelvis. MIP, MPR, and 3-D images were obtained. All CT scans at this facility use dose modulation, iterative reconstruction, and/or weight based dosing when appropriate to reduce radiation dose to as low as reasonably achievable. COMPARISON: None available at the time of dictation. FINDINGS: ANNULAR PLANE DISTANCE: 24.2 x 20.8 mm AREA: 3.78 cm2 AVERAGE DIAMETER: 22.5 mm PERIMETER: 70.7 mm LEFT CORONARY ARTERY HEIGHT ABOVE ANNULAR PLANE: 11.2 mm RIGHT CORONARY ARTERY HEIGHT ABOVE ANNULAR PLANE: 13.1 mm LEFT CORONARY SINUS DIAMETER: 25.9 mm RIGHT CORONARY SINUS DIAMETER: 26.1 mm NONCORONARY CORONARY SINUS DIAMETER: 26.8 mm SINOTUBULAR JUNCTION DIAMETER: 24.1 mm RIGHT COMMON ILIAC ARTERY MINIMAL DIMENSIONS: 5.96 mm RIGHT EXTERNAL ILIAC ARTERY MINIMAL DIMENSIONS: 4.55 mm RIGHT COMMON FEMORAL ARTERY MINIMAL DIMENSIONS: 5.5 mm LEFT COMMON ILIAC ARTERY MINIMAL DIMENSIONS: 4.98 mm LEFT EXTERNAL ILIAC ARTERY MINIMAL DIMENSIONS: 5.6 mm LEFT COMMON FEMORAL ARTERY MINIMAL DIMENSIONS: 5.3 mm [LOWER NECK]: Unremarkable [LYMPH NODES/MEDIASTINUM]: No abnormal lymph nodes by CT size criteria [CARDIOVASCULAR]: Normal cardiac size. No pericardial effusion. No aneurysmal dilatation of the great vessels. Coronary artery calcifications. The appearance of pulmonary emboli in the right interlobar artery to right distal main pulmonary artery and propagating into the lower right segmental to subsegmental pulmonary arteries. Additional involvement of right upper lobe segmental arteries. No definitive involvement of the left pulmonary tree. [LUNG PARENCHYMA/PLEURAL SPACE]: Medium-sized bilateral pleural effusions. Patchy areas of ground-glass in bilateral upper lobes with the areas of interstitial thickening. Partial collapse of bilateral lower lobes [CHEST WALL]: Unremarkable. [LIVER]: Normal hepatic size without suspicious focal lesion. [SPLEEN]: Unremarkable. [PANCREAS]: Unremarkable. [GALLBLADDER AND BILIARY TREE]: No cholelithiasis. No biliary dilatation. [ADRENAL GLANDS]: Unremarkable [KIDNEYS]: No hydronephrosis. No nephroureterolithiasis. [BLADDER]: Unremarkable for the degree distention. [PELVIC ORGANS]: Slight bulbous appearance of the anterior aspect of the uterus which may represent underlying fibroid incompletely characterized [BOWEL/MESENTERY]: Stomach is normal. No CT evidence of bowel obstruction. Small duodenal diverticulum. Jend-bb-msgibjzu stool burden. Normal appendix. [ASCITES]: Absent [LYMPHADENOPATHY]: No pathologically enlarged lymph nodes by CT size criteria [VASCULATURE]: Vascular calcifications. Scattered mixed atherosclerotic plaque along the visualized aorta [ABDOMINAL WALL]: Likely injection related areas of granulomas/density along bilateral anterior abdominal cisse. Minimal lower anterior abdominal wall to proximal thigh subcutaneous adipose tissue edema which may be related to the third-spacing. [MUSCULOSKELETAL]: No acute fracture or aggressive focal osseous lesion. Multifocal degenerative change of the visualized spine. Suture tracts in the right proximal humerus. IMPRESSION: 1. Calculations for TAVR evaluation as above. 2. Medium bilateral pleural effusions. Coronary artery calcifications. 3. Suspected acute pulmonary emboli along the right distal main pulmonary artery to right interlobar artery as detailed above.
== END 2025-09-02 23:59 | disposition home or self-care (01) ==
LOC: RAD 09:26
PROVIDERS: ATTEND Internal Medicine Cardiovascular Disease
DX: K57.10 Diverticulosis of small intestine without perforation or abscess without bleeding (principal); I35.0 Nonrheumatic aortic (valve) stenosis; R06.02 Shortness of breath; I65.29 Occlusion and stenosis of unspecified carotid artery; J90 Pleural effusion, not elsewhere classified; I70.0 Atherosclerosis of aorta; I25.10 Atherosclerotic heart disease of native coronary artery without angina pectoris
CPT/HCPCS: 36415; 71275; 74174; 75572; 80053; 83880; 85025; 85610; 85730; Q9967

== ENCOUNTER 2025-09-02 12:58 | Emergency (ER) | payer MEDICARE, OTHER ==
[~2025-09-02] VITALS: Ht 160 cm; Wt 98.6 kg
[~2025-09-02 12:58] MED LIST changes: -IODIXANOL 320 MG/ML INFUS..BTL 100ML IV ONE
[2025-09-02 13:17] VITALS: TEMP 98.5
--- NOTE | 2025-09-02 14:18 | Physician Documentation ---
History of Present Illness ~ Chief Complaint: Shortness of Breath Stated Complaint: POSS PE Time Seen by MD: 14:30 Source: patient, family (GRAND DAUGHTER) Mode of Arrival: Wheelchair HPI 74-year-old female who was recently admitted and discharged on 08/27/2025 from [facility] was being admitted and treated for AFib RVR, heart failure, NSTEMI, cardiogenic shock, severe aortic stenosis requiring valve repair under evaluation. She is presenting here after she had the CT chest abdomen and pelvis done for TAVR workup. She has seen Dr. Samson Hamilton yesterday in his clinic and was started on Eliquis five b.i.d., 1st dose was last night. Currently she denies any new symptoms or concerns. She is on 2 L oxygen from the day of discharge. She does have shortness of breath on and off for the last couple months. She had a CTA done July 21, [address] which showed [address] PE[address] CT chest today shows a PE. She also had a stent placed on the 26 July 2025 and she was on aspirin and Plavix, aspirin was discontinued yesterday by Dr. Hamilton and was recommended to continue Plavix. Currently she is on Plavix and Eliquis. History Of: CHF Medication Reconciliation Allergies: Coded Allergies: No Known Allergies (Unverified , 09/02/25) Scheduled Acetaminophen (Tylenol), 650 MG PO Q6H PRN PAIN, (Reported) Apixaban (Eliquis), 10 MG PO BID Ascorbic Acid (Vitamin C), 1 TAB PO DAILY, (Reported) Aspirin (Aspirin EC), 1 TAB PO DAILY, (Reported) Atorvastatin Calcium* (Lipitor*), 40 MG PO HS, (Reported) Balsam [place] Oil (Venelex Ointment), 1 APPLIC TP DAILY, (Reported) Cholecalciferol (Vitamin D3) (Vitamin D3), 1 CAP PO DAILY, (Reported) Clopidogrel Bisulfate (Clopidogrel), 1 TAB PO DAILY, (Reported) Cyanocobalamin (Vitamin B-12) (Vitamin B-12), 1 CAP PO DAILY, (Reported) Empagliflozin (Jardiance), 1 TAB PO DAILY, (Reported) Glipizide (Glipizide), 1 TAB PO DAILY, (Reported) Insulin Lispro (Insulin Lispro), 1 APPLIC SQ ACHS, (Reported) Magnesium (Magnesium Oxide), 400 MG PO DAILY, (Reported) Magnesium Hydroxide (Milk of Magnesia), 30 ML PO DAILY, (Reported) Magnesium Oxide (Magnesium), 1 CAP PO DAILY, (Reported) Melatonin (Melatonin), 1 TAB PO HS, (Reported) Metoprolol Tartrate (Lopressor tablet), 12.5 MG PO BID, (Reported) Midodrine Hcl* (Proamatine*), 1 TAB PO Q8H, (Reported) Multivitamin (Multi Vitamin Daily), 1 TAB PO DAILY, (Reported) Sacubitril/Valsartan (Entresto 24 mg-26 mg Tablet), 0.5 TAB PO Q12H, (Reported) Scheduled PRN Acetaminophen (Tylenol), 650 MG PO Q6H PRN PAIN PRN for pain, (Reported) Acetaminophen/Guaifenesin (Mucinex Cold-Flu Hbp Liq Gel), 2 CAP PO Q12H PRN for cough & congestion, (Reported) Albuterol Sulfate Nebs* (Proventil Nebs*), 2.5 MG IH Q4H PRN for SOB or wheezing, (Reported) Bisacodyl (Dulcolax), 2 TAB PO DAILY PRN for constipation, (Reported) Bisacodyl (Bisacodyl), 1 SUPP RC DAILY PRN for constipation, (Reported) Hydrocodone Bit/Acetaminophen 5/325 MG ([place] 5/325 MG), 2 TAB PO Q4H PRN for moderate or severe pain, (Reported) Na Phos,M-B/Na Phos,Di-Ba (Fleet Enema Extra), 1 APPLIC RC DAILY PRN for constipation, (Reported) Ondansetron HCl (Ondansetron HCl), 1 TAB PO Q6H PRN PRN for nausea/vomiting, (Reported) Review of Systems ROS Reviewed in full. All negative except for pertinent positive HPI. Physical Exam Vital Signs: Temperature: 98.5, Source: Temporal, Heart Rate: 73, Respiratory Rate: 20, BP: 120/97, Pulse Oximetry: 96, Weight: 98.640 Oxygen Flow Rate: 2.0 Physical Exam General: Awake and Alert, no acute distress. On 2 L oxygen nasal cannula. HEENT: Conjunctiva pink, Sclera clear, Mucus Membranes moist. Neck: Supple without masses and tenderness. Resp: Unlabored. Equal breath sounds bilaterally. Heart: Regular rhythm, ejection systolic murmur grade 4/6 in the aortic area. Abdomen: Soft and non tender no organomegaly. Normal bowel sounds x4 quadrant normoactive. No guarding or rigidity. Extremities: Bilateral lower extremity edema 2+ PROCESSING ARCHIVIST: No gross motor or sensory abnormalities. Skin: Warm and Dry. Progress Results/Orders Results/Orders Medications Received in ER Medications (Trade) Dose Ordered Sig/Viet Route PRN Reason Start Time Stop Time Status Last Admin Dose Admin (Eliquis tablet) 10 mg ONCE ONCE PO 09/02/25 15:55 09/02/25 15:56 DC 09/02/25 15:57 10 MG Vital Signs 09/02/25 09/02/25 13:17 16:01 Temp 98.5 Pulse 73 64 Resp 20 16 B/P (MAP) 120/97 121/62 Pulse Ox 96 98 O2 Flow Rate 2.0 Laboratory Tests Test 09/02/25 14:20 09/02/25 14:53 Troponin I High Sensitivity 148 *H Pro-B-Type Natriuretic Peptide 44895 H White Blood Count 11.1 H Red Blood Count 3.12 L Hemoglobin 9.1 L Hematocrit 28.8 L Mean Corpuscular Volume 92.5 Mean Corpuscular Hemoglobin 29.0 Mean Corpuscular Hemoglobin Concent 31.4 L Red Cell Distribution Width 18.2 H Platelet Count 363 Mean Platelet Volume 7.3 L Neutrophils (%) (Auto) 78.0 H Lymphocytes (%) (Auto) 12.7 L Monocytes (%) (Auto) 7.7 Eosinophils (%) (Auto) 0.7 Basophils (%) (Auto) 0.9 Neutrophils # (Auto) 8.6 H Lymphocytes # (Auto) 1.4 Monocytes # (Auto) 0.9 Eosinophils # (Auto) 0.1 Basophils # (Auto) 0.1 CBC Comment D-Dimer 4.17 H D-Dimer Comment Sodium Level 146 H Potassium Level 3.4 L Chloride Level 107 Carbon Dioxide Level 30.7 Anion Gap 8 Blood Urea Nitrogen 36 H Creatinine 1.24 H Estimated GFR/1.73 m2 42 BUN/Creatinine Ratio 29.0 H Glucose Level 123 H Calcium Level 9.0 Total Bilirubin 0.8 Aspartate Amino Transf (AST/SGOT) 31 Alanine Aminotransferase (ALT/SGPT) 150 H Alkaline Phosphatase 103 Total Protein 6.9 Albumin 3.1 L Globulin 3.8 Albumin/Globulin Ratio 0.8 L Chemistry Comments Medical Decision Making Additional information obtaine: other, N/A Findings On 2 L oxygen nasal cannula. (requiring oxygen since discharge 08/27/25) History of AFib RVR was started on Eliquis yesterday (grounds foreman Dr. Smason Hamilton.) CT chest today as a part of pre TAVR evaluation shows a PE Heart Score: 0 Differential Dx:Considerations: Include: asthma, bronchitis, CHF, COPD, pneumothorax, pulmonary embolism Addendum I supervised the resident physician during the evaluation of this patient. I also independently evaluated the patient and reviewed her workup myself. The patient presents with an incidental pulmonary embolus found on an outpatient CT scan. She does have shortness of breath and other abnormal findings on her blood testing, but also has underlying heart disease that could explain some of this. Her grounds foreman was consulted and did not recommend admission or any other specific treatment other than the appropriate anticoagulation. I did speak directly to the patient and asked her if she felt comfortable returning to her facility, and she said yes. Her daughter was also present and I answered all of their questions. She will be treated with PE dosing of Octavia simeon, and discharged with ongoing outpatient management. Precautions given. Calos Eng MD Departure Disposition: 01 HOME / SELF CARE / HOMELESS Impression: Primary Impression: Pulmonary embolism Condition: Stable Discharge Instructions: Heart Failure, Diagnosis, Mooh-la-Ocnm, Pulmonary Embolism Additional Instructions: Talked to Dr Hamilton and he is aware about your PE, and is okay with Discharging you home with anticoagulation. Take Eliquis 10 BID for 7 days and then 5 mg BID for atleast 3 months, follow up with Dr Hamilton regarding your TAVR evaluation and consultation. If condition worsens call 911 or go the nearest ER immediately. Referrals: NO PRIMARY CARE PROVIDER (PCP) Prescriptions Apixaban (ELIQUIS) 5 Mg Tablet 10 MG PO BID for 30 Days, #70 TAB TAKE 10 MG BID X 7 DAYS AND THEN 5 MG BID FOR THE NEXT 3 MONTHS ATLEAST. Prov: AMOS MURILLO RES 09/02/25 Education Educated: Patient, Family Educated regarding: diagnosis, treatment, prognosis, need for follow up Signature Scribe Signature: NA Attestation: MD LIDIA Benz ELIZABETH, RES Sep 02, 2025 14:18 CALOS ENG MD Sep 02, 2025 18:49
--- NOTE | 2025-09-02 14:25 | ELECTROCARDIOGRAPH REPORT ---
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 BOBBI Shah Measurements Intervals [place] Rate: 63 P: 120 HI: 173 QRS: -35 QRSD: 152 T: 180 QT: 440 QTc: 451 Interpretive Statements Sinus rhythm Left bundle branch block Electronically Signed On 09-04-2025 18:09:[address] BOBBI Shah Please click the below link to view image of tracing.
[2025-09-02 15:11] LABS: MEAN PLATELET VOLUME 7.3 FL (7.4-10.4); RED CELL DISTRIBUTION WIDTH 18.2 % (11.5-14.5)
[2025-09-02 15:28] LABS: CREATININE 1.24 MG/DL (0.40-0.90); TOTAL CARBON DIOXIDE 30.7 MMOL/L (24-32); eCRCL 33 ML/MIN; eGFR 42 ML/MIN
[2025-09-02] MEDS ORDERED: APIX5TAB3 PO (15:58)
[2025-09-02 16:01] VITALS: BP 121/62; PULSE 64; RESP 16; O2SAT 98
== END 2025-09-02 16:04 | disposition home or self-care (01) ==
LOC: ER 12:59
DX: I26.99 Other pulmonary embolism without acute cor pulmonale (principal); I50.9 Heart failure, unspecified; Z79.02 Long term (current) use of antithrombotics/antiplatelets; Z79.01 Long term (current) use of anticoagulants; Z79.899 Other long term (current) drug therapy
CPT/HCPCS: 36415; 80053; 83880; 84484; 85025; 85379; 93005; 99284

== ENCOUNTER 2025-09-13 19:08 | Emergency (ER) | payer MEDICARE, OTHER ==
[~2025-09-13] VITALS: Ht 167.6 cm; Wt 90.9 kg
[~2025-09-13 19:08] MED LIST changes: +APIX5TAB3 PO; -GLIP5TAB23 PO; -LOP12.5T PO
[2025-09-13 20:16] LABS: MEAN PLATELET VOLUME 7.6 FL (7.4-10.4); RED CELL DISTRIBUTION WIDTH 17.9 % (11.5-14.5)
[2025-09-13 20:36] LABS: CREATININE 1.74 MG/DL (0.40-0.90); TOTAL CARBON DIOXIDE 34.3 MMOL/L (24-32); eCRCL 27 ML/MIN; eGFR 29 ML/MIN
[2025-09-13] MEDS: ondansetron 4mg rapidly disintigrating tab PO ONE (20:42)
--- NOTE | 2025-09-13 21:57 | RADIOLOGY REPORT ---
EXAM: CT CT ABDOMEN PELVIS INDICATION: pain, no BM TECHNIQUE: Volumetric multidetector CT images of the abdomen and pelvis were obtained without contrast. All CT scans at this facility use dose modulation, iterative reconstruction, and/or weight based dosing when appropriate to reduce radiation dose to as low as reasonably achievable. COMPARISON: CT of the chest 07/24/25 FINDINGS: [LOWER CHEST]: Small to medium bilateral pleural effusions with areas of presumed calcified pleural plaque versus calcification in a partial collapse left lower lobe. Small area of pleural-based nodularity measuring up to 1.6 cm in the right lower lobe. Coronary artery calcifications. Mild cardiomegaly. [LIVER]: Question slight nodular contour of the anterior aspect of the left hepatic lobe which may be seen in the setting of chronic liver disease. [GALLBLADDER AND BILIARY TREE]: Trace possible layering gallbladder sludge. [SPLEEN]: Unremarkable. [PANCREAS]: Unremarkable. [ADRENAL GLANDS]: Unremarkable [KIDNEYS]: Small 1 mm left superior renal caliceal nonobstructive stone. No hydronephrosis. No nephroureterolithiasis. No suspicious focal lesion. [BLADDER]: Unremarkable for the degree distention. [REPRODUCTIVE ORGANS]: Unremarkable. [BOWEL/MESENTERY]: Stomach is normal. Small duodenal diverticulum measuring 1.9 cm. Jylt-rj-huobhjwa stool burden. Correlate for constipation. No CT evidence of bowel obstruction. [ASCITES]: Absent [LYMPHADENOPATHY]: No pathologically enlarged lymph nodes by CT size criteria [VASCULATURE]: Vascular calcifications. No aneurysmal dilatation. [ABDOMINAL WALL]: Suspected injection related granulomas of the anterior abdominal subcutaneous adipose tissues. Minimal body wall edema. [MUSCULOSKELETAL]: No acute fracture or aggressive focal osseous lesion. Multifocal degenerative change of the visualized spine. Degenerative change of bilateral hips. IMPRESSION: 1. No CT evidence of an acute abdominal/pelvic process. 2. Vwns-is-hticygxp stool burden. Correlate for constipation. 3. Small to medium bilateral pleural effusions with areas of presumed calcified pleural plaque versus calcification in a partial collapsed left lower lobe. 4. Small area of pleural-based nodularity measuring up to 1.6 cm in the right lower lobe of indeterminate etiology and slightly more conspicuous than CTA of the chest 07/24/25 and imaging finding may be related to rounded atelectasis. Consider short-term imaging follow up in 6-8 weeks to assess for interval change.
--- NOTE | 2025-09-14 00:04 | Physician Documentation ---
History of Present Illness ~ Chief Complaint: Constipation Stated Complaint: ABD PAIN Time Seen by MD: 19:27 HPI This is a very pleasant 74-year-old female sent to us from [facility] for evaluation of constipation for the last eight days and generalized abdominal discomfort. No obvious trigger provocation. She has a received some magnesium hydroxide and suppositories. She is not on any regular anticoagulation meds. No particular palliating or aggravating factors for abdominal discomfort. Denies any current nausea or vomiting. Does report however she had several episodes of the last 10 days. Denies chest pain or difficulty breathing. Denies melena, hematochezia. Denies any other symptoms. No concerns for tobacco, alcohol or illicit substances use Medication Reconciliation Allergies: Coded Allergies: No Known Allergies (Unverified , 09/13/25) Scheduled Acetaminophen (Tylenol), 650 MG PO Q6H PRN PAIN, (Reported) Apixaban (Eliquis), 10 MG PO BID Ascorbic Acid (Vitamin C), 1 TAB PO DAILY, (Reported) Aspirin (Aspirin EC), 1 TAB PO DAILY, (Reported) Atorvastatin Calcium* (Lipitor*), 40 MG PO HS, (Reported) Balsam Liv/[place] Oil (Venelex Ointment), 1 APPLIC TP DAILY, (Reported) Cholecalciferol (Vitamin D3) (Vitamin D3), 1 CAP PO DAILY, (Reported) Clopidogrel Bisulfate (Clopidogrel), 1 TAB PO DAILY, (Reported) Cyanocobalamin (Vitamin B-12) (Vitamin B-12), 1 CAP PO DAILY, (Reported) Empagliflozin (Jardiance), 1 TAB PO DAILY, (Reported) Insulin Lispro (Insulin Lispro), 1 APPLIC SQ ACHS, (Reported) Magnesium (Magnesium Oxide), 400 MG PO DAILY, (Reported) Magnesium Hydroxide (Milk of Magnesia), 30 ML PO DAILY, (Reported) Magnesium Oxide (Magnesium), 1 CAP PO DAILY, (Reported) Melatonin (Melatonin), 1 TAB PO HS, (Reported) Midodrine Hcl* (Proamatine*), 1 TAB PO Q8H, (Reported) Multivitamin (Multi Vitamin Daily), 1 TAB PO DAILY, (Reported) Sacubitril/Valsartan (Entresto 24 mg-26 mg Tablet), 0.5 TAB PO Q12H, (Reported) Scheduled PRN Acetaminophen (Tylenol), 650 MG PO Q6H PRN PAIN PRN for pain, (Reported) Acetaminophen/Guaifenesin (Mucinex Cold-Flu Hbp Liq Gel), 2 CAP PO Q12H PRN for cough & congestion, (Reported) Albuterol Sulfate Nebs* (Proventil Nebs*), 2.5 MG IH Q4H PRN for SOB or wheezing, (Reported) Bisacodyl (Dulcolax), 2 TAB PO DAILY PRN for constipation, (Reported) Bisacodyl (Bisacodyl), 1 SUPP RC DAILY PRN for constipation, (Reported) Hydrocodone Bit/Acetaminophen 5/325 MG ([place] 5/325 MG), 2 TAB PO Q4H PRN for moderate or severe pain, (Reported) Na Phos,M-B/Na Phos,Di-Ba (Fleet Enema Extra), 1 APPLIC RC DAILY PRN for constipation, (Reported) Ondansetron HCl (Ondansetron HCl), 1 TAB PO Q6H PRN PRN for nausea/vomiting, (Reported) Discontinued Medications Glipizide (Glipizide), 1 TAB PO DAILY, (Reported) Metoprolol Tartrate (Lopressor tablet), 12.5 MG PO BID, (Reported) Review of Systems ROS 10 point review of systems was performed and unless noted above in HPI is negative for acute process/complaint. Physical Exam Vital Signs: Temperature: 98.4, Source: Oral, Heart Rate: 82, Respiratory Rate: 16, BP: 121/93, Pulse Oximetry: 98, Weight: 90.910 Oxygen Flow Rate: 2.0 Physical Exam GENERAL: Awake, alert, oriented, GCS 15, no apparent distress, non-toxic appearing, answers questions, follows commands appropriately. HEENT: Atraumatic, normocephalic, pupils equal, extraocular muscles intact, sclerae anicteric, mucus membranes moist, oropharynx is clear, no stridor. NECK: supple, full active range of motion, trachea midline, no thyromegaly, no lymphadenopathy, no JVD. CARDIOVASCULAR: regular rate/rhythm, no murmurs/gallops/rubs, Pulses are 2+ in all extremities and symmetric. Capillary refill less than 2 seconds. PULMONARY: Nonlabored, good air movement ,no respiratory distress, speaking in full sentences, clear to auscultation bilaterally, no wheezing, no ronchi, no rales, no accessory muscle use. GASTROINTESTINAL: Soft, non-tender, non-distended, normal active bowel sounds, no organomegaly, no pulsatile masses, no CVA tenderness. NEUROLOGIC: Lucid with normal mental status. Normal facial symmetry. Moves all extremities symmetrically and with purpose. No truncal ataxia. Speech is fluid without evidence of dysarthria or aphasia, no focal deficits appreciated. MUSCULOSKELETAL: There is full range of motion of all extremities. There is no joint pain or joint swelling or joint erythema. There is no muscle pain or tenderness or swelling. EXTREMITIES: warm, well-perfused, no cyanosis, no clubbing, no edema, no acute deformities. Skin: warm, dry, no rashes or lesions, no jaundice, no petechiae orpurpura. No ecchymosis. PSYCHIATRIC: Normal affect, normal insight, normal concentration. Focused exam: [] Progress Results/Orders Results/Orders Orders - MICHAEL TREVIÑO DO Urinalysis, Cult If Indicated (09/13/25 19:16) Straight Cath For Urine Sample (09/13/25 19:16) Ct Abdomen Pelvis (09/13/25 19:26) Completed Orders - MICHAEL TREVIÑO DO Cbc/Diff (09/13/25 19:16) Lipase (09/13/25 19:16) CMP (09/13/25 19:16) Ct Abdomen Pelvis (09/13/25 19:26) Ondansetron Disint. Tablet (Zofran Odt T (09/13/25 19:30) Medications Received in ER Medications (Trade) Dose Ordered Sig/Viet Route PRN Reason Start Time Stop Time Status Last Admin Dose Admin (Zofran ODT tablet) 8 mg ONCE ONCE PO 09/13/25 19:30 09/13/25 19:31 DC 09/13/25 20:42 8 MG Vital Signs 09/13/25 19:23 Temp 98.4 Pulse 82 Resp 16 B/P (MAP) 121/93 Pulse Ox 98 O2 Flow Rate 2.0 Laboratory Tests Test 09/13/25 19:48 White Blood Count 8.0 Red Blood Count 3.56 L Hemoglobin 10.2 L Hematocrit 31.6 L Mean Corpuscular Volume 88.6 Mean Corpuscular Hemoglobin 28.5 Mean Corpuscular Hemoglobin Concent 32.2 L Red Cell Distribution Width 17.9 H Platelet Count 295 Mean Platelet Volume 7.6 Neutrophils (%) (Auto) 78.6 H Lymphocytes (%) (Auto) 8.2 L Monocytes (%) (Auto) 8.8 Eosinophils (%) (Auto) 3.6 Basophils (%) (Auto) 0.8 Neutrophils # (Auto) 6.3 Lymphocytes # (Auto) 0.6 L Monocytes # (Auto) 0.7 Eosinophils # (Auto) 0.3 Basophils # (Auto) 0.1 CBC Comment Sodium Level 141 Potassium Level 5.4 H Chloride Level 102 Carbon Dioxide Level 34.3 H Anion Gap 5 L Blood Urea Nitrogen 46 H Creatinine 1.74 H Estimated GFR/1.73 m2 29 BUN/Creatinine Ratio 26.4 H Glucose Level 148 H Calcium Level 9.4 Total Bilirubin 0.8 Aspartate Amino Transf (AST/SGOT) 27 Alanine Aminotransferase (ALT/SGPT) 47 Alkaline Phosphatase 71 Total Protein 7.1 Albumin 3.4 Globulin 3.7 Albumin/Globulin Ratio 0.9 L Lipase 34 Chemistry Comments Medical Decision Making Additional information obtaine: old records Findings Facility Status: ED Holds, [facility] process The plan was discussed with the patient, who demonstrates clear understanding of the plan and is in agreement with the plan unless otherwise noted in the chart. All questions have been answered, all concerns were addressed unless otherwise documented. I was available throughout their ED stay for frequent reassessment and questions. Differential Diagnoses (considered and possible or likely): [Differential diagnosis considered includes acute appendicitis, acute cholecystitis, pancreatitis, gastritis, PUD, diverticulitis, mesenteric ischemia, abdominal aortic aneurysm, bowel obstruction, enteritis, colitis, fecal impaction, volvulus, IBS, inflammatory bowel disease, specific food intolerance, peritonitis, perforated viscous, malignancy, UTI, abscess, and abdominal pain NOS. Pelvic source of pain was also considered including endometritis, dysmenorrhea, ovarian cyst, ovarian torsion, PID, TOA, cervicitis, vaginitis, or uterine fibroid. History, physical exam, and workup exclude many of the more serious causes listed above. ] ??Differential Diagnoses (considered and unlikely, not requiring evaluation currently): [See above] MDM Data Please see HPI for the following: Independent Historians and external Records Review. Historian: [Patient] Independent Historians: ?[] Medication Management: [Reviewed medication list] Social History and determinants: [Reviewed] Please see the body of the note for the following: Any independent interpretations of ECG, imaging studies. All vitals signs/haemodynamics, ordered tests were independently reviewed and interpreted by myself. Nursing triage complaint and vitals reviewed, additional nursing notes were reviewed as available and I agree unless otherwise noted or documented in contradiction in the chart Vital Signs: Independently reviewed Labs: Independently interpreted Imaging: Independently interpreted Old Medical Records: Independently reviewed, see HPI for relevant summary and information Additionally notably showing: [Hemodynamically stable. CT shows no bowel obstruction. Unremarkable laboratory workup.] Tests considered but not ordered include: [Not applicable] Social Determinants of Health Impact: Patient was evaluated in [facility], [facility] [place] access to healthcare due to below par ratio of patient to medical providers. [] Comorbid Conditions Impacting Present Evaluation and Care/Treatment: [See above] Management Discussions with other Healthcare Providers: [None] Treatment and Disposition Medication Management (Given or considered): [Magnesium citrate]. See EMR for details Consideration for Hospitalization/Escalation/Deescalation of Care: Admission for observation has been considered, [however the patient is able to tolerate p.o., their symptoms are controlled, they are able to rely on oral medications, and their chief complaint/diagnosis can be managed on outpatient basis.] ?ED Course:?[No clinical deterioration] ?Shared decision making:?[Patient is hemodynamically stable for discharge home with follow with their primary care provider. [ ] Specific and cautious return precautions provided and discussed with full understanding. Any incidental findings were also discussed and follow up recommendations given. [] All questions answered. Patient/family were able to verbalize back return precautions. Patient/family agree to plan. Copies of imaging and laboratory studies were provided.] Code status:?FULL Please see the full Electronic Medical Record for full details of nursing do cumentation, medications list, other records of complete past medical history and conditions, vital signs, laboratory studies, and any radiologic study interpretations by radiologists. Portions of this note were completed using [employer] dictation software and as a result there may exist minor errors in spelling. I have reviewed elements of past family and social history and agree as included in note. Diff Dx GI Bleed:Consideration: Include: Other (See body of main note for differential diagnosis) Diff Dx Pain:Considerations: Unlikely: Other Diff Dx N/V/D:Considerations: Unlikely: Other Diff Dx Rectal:Considerations: Unlikely: Other Departure Disposition: 01 HOME / SELF CARE / HOMELESS Impression: Primary Impression: Constipation Condition: Improved Discharge Instructions: Constipation, Adult Referrals: NO PRIMARY CARE PROVIDER (PCP) Education Educated: Patient Educated regarding: diagnosis, treatment, prognosis, need for follow up Signature Scribe Signature: No scribe Attestation: The note accurately reflects work and decisions made by me.Michael Treviño DO 09/14/25 00:05 MICHAEL TREVIÑO DO Sep 14, 2025 00:04
[2025-09-14] MEDS: magnesium citrate 296ml oral solution PO ONE (00:36)
[2025-09-14 00:38] VITALS: BP 125/67; PULSE 98; RESP 17; TEMP 98.4; O2SAT 99
== END 2025-09-14 00:41 | disposition home or self-care (01) ==
LOC: ER 19:09
DX: K59.00 Constipation, unspecified (principal); Z79.899 Other long term (current) drug therapy; Z79.82 Long term (current) use of aspirin
CPT/HCPCS: 36415; 74176; 80053; 83690; 85025; 99284